=== PATIENT | female | born 1945 | race Caucasian/White ===

== ENCOUNTER 2017-08-18 13:36 | Outpatient (CLI) | payer MEDICARE, OTHER | END 2017-08-18 13:37 | disposition home or self-care (01) | LOC: BICMAMMO 13:36 | PROVIDERS: ATTEND Physician Assistant | DX: Z12.31 Encounter for screening mammogram for malignant neoplasm of breast (principal) | CPT/HCPCS: 77063; 77067 ==

== ENCOUNTER 2017-10-14 15:19 | Outpatient (CLI) | payer MEDICARE, OTHER | END 2017-10-14 15:20 | disposition home or self-care (01) | LOC: BICULT 15:19 | PROVIDERS: ATTEND Internal Medicine Cardiovascular Disease | DX: E04.1 Nontoxic single thyroid nodule (principal); E04.2 Nontoxic multinodular goiter | CPT/HCPCS: 76536 ==

== ENCOUNTER 2018-08-24 14:17 | Outpatient (CLI) | payer MEDICARE, OTHER ==
--- NOTE | 2018-08-24 15:33 | BD ---
Exam: DEXA Bone Density 08/24/18 HISTORY: 73-year-old postmenopausal female for screening. COMPARISON: None. FINDINGS: Lumbar Spine: BMD (g/cm2) L1 0.890 T-Score: -2.7 L2 0.764 T-Score: -2.4 L3 0.879 T-Score: -1.9 L4 0.659 T-Score: -3.7 L1-L4 0.751 T-Score: -2.7 Left Femoral Neck: 0.788 T-Score: -2.4 Total Femur: 0.747 T-Score: -1.6 Impression: Osteoporosis. This patient has between a 6 and 7 times increased risk of fracture when compared with young patients with normal bone mineral density. POS: MONALISA
== END 2018-08-24 14:18 | disposition home or self-care (01) ==
LOC: BICMAMMO 14:17
PROVIDERS: ATTEND Physician Assistant
DX: Z12.31 Encounter for screening mammogram for malignant neoplasm of breast (principal); Z13.820 Encounter for screening for osteoporosis; E55.9 Vitamin D deficiency, unspecified; M81.0 Age-related osteoporosis without current pathological fracture; Z80.3 Family history of malignant neoplasm of breast
CPT/HCPCS: 77063; 77067; 77080

== ENCOUNTER 2018-10-10 11:07 | Emergency (ER) | payer MEDICARE, OTHER ==
[2018-10-10] MEDS ORDERED: Ondansetron PF 4 MG/2 ML Vial ONE (11:48)
[2018-10-10] MEDS ORDERED: Morphine 4 MG/ML VIAL ONE (11:48)
[2018-10-10 11:50] LABS: #Lymphocytes 0.8 thou/uL (1.20-3.40); #Monocytes 0.4 thou/uL (0.11-0.59); #Neutrophils 14.4 thou/uL (1.40-6.50); %Basophils 0.2 % (0.0-1.0); %Eosinophils 0.1 % (0.0-10.0); %Lymphocytes 4.9 % (21.0-51.0); %Monocytes 2.8 % (0.0-10.0); %Neutrophils 92.1 % (42.0-75.0); Mean Corpuscular Hemoglobin 31.4 pg (27.0-31.0); Mean Platelet Volume 8.3 fL (7.4-10.4); Platelet Count 249 thou/uL (130-400); RBC Distribution Width 12.1 % (11.5-14.5); Red Blood Cell (RBC) Count 4.47 mill/uL (4.20-5.40); White Blood Cell (WBC) Count 15.6 thou/uL (4.8-10.8)
[2018-10-10 12:07] LABS: ALT (SGPT) 19 U/L (8-55); AST (SGOT) 18 U/L (5-34); Albumin 4.1 g/dL (3.4-4.8); Alkaline Phosphatase 123 U/L (40-150); Anion Gap 16 mmol/L (10-20); BUN (Urea Nitrogen) 20 mg/dL (9.8-20.1); Bilirubin, Total 0.6 mg/dL (0.2-1.2); Calc. Creatinine Clearance 0 mL/min (70-130); Calcium 9.4 mg/dL (7.8-10.44); Carbon Dioxide 23 mmol/L (23-31); Chloride 105 mmol/L (98-107); Estimated GFR-MDRD 74; Glucose 149 mg/dL (83-110); Lipase 10 U/L (8-78); Potassium 3.9 mmol/L (3.5-5.1); Protein, Total 7.1 g/dL (6.0-8.3); Sodium 140 mmol/L (136-145)
[2018-10-10 12:24] LABS: Bilirubin Moderate (Negative); Blood, Urine Negative (Negative); Clarity CLOUDY (Clear); Glucose, Urine (Dipstick) Negative (Negative); Leukocyte Small (Negative); Nitrite Positive (Negative); Protein, Urine (Dipstick) Negative (Neg-Trace); Specific Gravity, Urine 1.025 (1.002-1.036)
[2018-10-10 12:25] LABS: Pathc Cast-AUWi Flag 1.76 (0-2.49)
[2018-10-10 12:38] LABS: Bacteria/HPF Rare-Few HPF (None Seen); WBC/HPF 0-3 HPF (0-3)
[2018-10-10 12:39] LABS: Crystals/HPF 2+ CA OXALATE HPF (Negative); Hyaline Casts/LPF NONE SEEN LPF (0-3 Hyaline)
[2018-10-10] MEDS ORDERED: Ondansetron ODT 4 MG TAB ONE (13:54)
[2018-10-10] MEDS ORDERED: ISOVUE-370 76%-LOCM 1 ML ONE (14:11)
--- NOTE | 2018-10-10 14:25 | CT ---
CT ABDOMEN WITH CONTRAST CT PELVIS WITH CONTRAST: HISTORY: Abdominal pain. Constipation, x 1 week. COMPARISON: None. FINDINGS: CT ABDOMEN: Lung bases are clear. Heart size is normal. No significant pericardial fluid. Calcifications of th e pericardium are noted. The descending thoracic aorta and abdominal aorta have a normal caliber. N o periaortic fat stranding. Hypoattenuation of the liver likely due to hepatic steatosis. Spleen and adrenal glands are unremark able. There is pancreatic atrophy. Portal vein is patent. Unremarkable gallbladder. No gastrohepatic, retrocrural, or periportal lymphadenopathy. Symmetric enhancement of the kidneys. Bilaterally, no obstructive uropathy. Small ventral abdominal wall hernia containing mesenteric fat. Limited evaluation of the alimentary canal by lack of oral contrast. Small hiatal hernia is identifi ed. Gastric mucosa, duodenum, and multiple normal-caliber small bowel loops are normal. Ileocecal j unction is normal. Surgically absent appendix. No inflammation of the cecal apex. There is a copio us amount of fecal material in the cecum, ascending colon, transverse colon, and proximal descending colon. There is abrupt change in caliber involving the proximal descending colon. There is evidence of diverticulosis without evidence of diverticulitis. There appears to be circumferential, long-seg ment narrowing of the colon which may represent an area of colonic contraction. However, a malignant process versus changed remote bouts of infection/inflammation cannot be excluded. CT PELVIS: No mass, lymphadenopathy, free air, or free fluid. Pain pump/stimulator is noted in the pelvis. Surgically absent uterus. IMPRESSION: 1. Copious amount of fecal material with abrupt caliber change involving the proximal descending col on. There is associated bowel wall thickening and mucosal enhancement without evidence of active inf lammation. Findings may represent changes from a remote bout of infection or inflammation. Underlyi ng neoplastic process cannot be excluded. Colonoscopy is recommended. 2. Diverticulosis into the left hemicolon, without evidence of diverticulitis. 3. Copious amount of fecal material compatible with constipation/obstruction. 4. GI consultation is recommended for colonoscopy. POS: MONALISA
== END 2018-10-10 13:58 | disposition home or self-care (01) ==
LOC: ERS 11:07
DX: N39.0 Urinary tract infection, site not specified (principal); K59.00 Constipation, unspecified; K63.89 Other specified diseases of intestine; I10 Essential (primary) hypertension; Z79.82 Long term (current) use of aspirin; Z79.899 Other long term (current) drug therapy
CPT/HCPCS: 36415; 74177; 80053; 81003; 81015; 83690; 85025; 87086; A4353; J2270; J2405; Q0162

== ENCOUNTER 2018-10-10 22:47 | Inpatient (IN) | payer MEDICARE, OTHER ==
[2018-10-11] MEDS ORDERED: Morphine 4 MG/ML VIAL ONE (00:18)
[2018-10-11] MEDS ORDERED: Ondansetron PF 4 MG/2 ML Vial ONE (00:19)
[2018-10-11 00:31] LABS: Hemoglobin 15.5 g/dL (12.0-16.0); Mean Corpuscular HGB CONC 32.3 g/dL (32.0-36.0); Mean Corpuscular Hemoglobin 30.6 pg (27.0-31.0); Mean Corpuscular Volume 94.7 fL (78.0-98.0); Mean Platelet Volume 9.3 fL (7.4-10.4); Platelet Count 338 thou/uL (130-400); RBC Distribution Width 12.5 % (11.5-14.5); Red Blood Cell (RBC) Count 5.08 mill/uL (4.20-5.40); White Blood Cell (WBC) Count 27.2 thou/uL (4.8-10.8)
[2018-10-11 00:44] LABS: Band 26 % (5-11); Lymphocytes 1 % (21-51); MDiff Complete? YES; Monocytes 8 % (0-10); Neutrophil 65 % (42-75); Platelet Morphology Comment Appears Adequate
[2018-10-11 00:51] LABS: ALT (SGPT) 23 U/L (8-55); AST (SGOT) 22 U/L (5-34); Alkaline Phosphatase 107 U/L (40-150); Anion Gap 20 mmol/L (10-20); BUN (Urea Nitrogen) 22 mg/dL (9.8-20.1); Bilirubin, Total 0.5 mg/dL (0.2-1.2); Calc. Creatinine Clearance 0 mL/min (70-130); Calcium 9.1 mg/dL (7.8-10.44); Carbon Dioxide 18 mmol/L (23-31); Chloride 106 mmol/L (98-107); Estimated GFR-MDRD 66; Globulin 3.4 g/dL (2.4-3.5); Glucose 220 mg/dL (83-110); Lipase 4 U/L (8-78); Potassium 3.8 mmol/L (3.5-5.1); Protein, Total 7.4 g/dL (6.0-8.3); Sodium 140 mmol/L (136-145)
[2018-10-11] MEDS ORDERED: Piperacillin/Tazobactam 4.5 GM VIAL ONE (00:52)
[2018-10-11] MEDS ORDERED: Acetaminophen 325 MG TAB PO PRN (02:11)
[2018-10-11] MEDS ORDERED: Senokot S 8.6-50 MG TAB PO PRN (02:11)
[2018-10-11] MEDS ORDERED: Zolpidem Tartrate 5 MG TAB PO PRN (02:11)
--- NOTE | 2018-10-11 02:16 | PDOC.EVN ---
Event Note - Event Note Event Note: H&P [id number]
--- NOTE | 2018-10-11 02:36 | HP ---
ADMITTING COMPLAINT: Abdominal pain, and constipation. HISTORY OF PRESENT ILLNESS: This is a 73-year-old female with a significant history of constipation, diverticular disease, diverticulitis, comes into the ER with significant pains of constipation. The patient was found to have a potential rectal volvulus along with colitis. The patient's case was discussed between the ER attending as well as General Surgery. Plan was made to admit the patient with some IV antibiotics and fluids, and we will keep the patient n.p.o., and consult GI for potential intervention if needed. Lactic acid was found to be elevated upon the time of admission. The patient states that the symptoms apparently started 2-3 weeks ago and she has been having worsening pains since then. The patient otherwise admits to past medical history of hypertension, hyperlipidemia, osteoporosis, GERD as well as constipation and diverticular disease. The patient states that currently upon evaluation, she is having colicky pain, which is about 6/10 and comes and goes with no relieving or aggravating factors. No associated symptoms or complaints. The patient is seen and examined in the ER. Daughter at bedside. All questions answered. ALLERGIES: NO KNOWN DRUG ALLERGIES. HOME MEDICATIONS: See MAR. SOCIAL HISTORY: Nondrinker, nonsmoker. FAMILY HISTORY: hypertension, hyperlipidemia. REVIEW OF SYSTEMS: All systems reviewed. Pertinent positives in HPI, otherwise negative. PAST MEDICAL HISTORY: Hypertension, hyperlipidemia, GERD, osteoporosis, diverticular disease. PHYSICAL EXAMINATION: VITAL SIGNS: Blood pressure is 128/88, O2 saturation 100% on room air, temperature of 100, heart rate of 88. GENERAL: The patient is lying in bed, in no acute discomfort. HEENT: Pupils are equal, round, and reactive to light and accommodation. NC/AT. Oral cavity moist and pink. Extraocular muscles intact. NECK: Supple, mobile, and nontender. Thyroid appreciated. RESPIRATORY EXAM: Regular respiratory rate, clear to auscultation bilaterally. No rales, rhonchi, or wheezing appreciated. CARDIOVASCULAR EXAM: S1 and S2. No murmurs, rubs, or gallops appreciated. ABDOMINAL EXAM: Positive pain to palpation epigastric region of the level of left lower quadrant, bowel sounds present. Slightly distant, slightly slow. EXTREMITIES: 1+ pitting edema in bilateral lower extremities. No cyanosis or clubbing noted. NEUROLOGICAL: Cranial nerves 2 through 12 intact. No loss of motor or sensory function. CBC reviewed. Basic metabolic panel reviewed. Acute abdominal series reviewed as well. ASSESSMENT: 1. Volvulus versus constipation versus rectosigmoid obstruction. 2. Constipation. 3. Diverticular disease. 4. Hypertension. 5. Hyperlipidemia. 6. Abdominal pain. PLAN: 1. At this point in time, we will admit the patient to internal Medicine team, we will start the patient on antibiotics, Merrem. 2. We will consult General Surgery as well as GI. 3. We will place the patient n.p.o. for possible surgical intervention versus disimpaction. 4. Repeat labs in the morning. 5. Start IV fluids. We will do bicarb drip as the patient is acidotic with a bicarb of 18, so we will do half-normal saline with at 75 mL an hour. We will also provide p.r.n. pain medications. The patient wishes to remain a full code. Case and plan discussed with patient and daughter who was at bedside at length. They understand and agree with this plan. Job ID: [id number]
[2018-10-11] MEDS: Sodium Bicarbonate 50 MEQ in Sodium Chloride 0.45% 1,000 ML IV SCH (03:21)
[2018-10-11 03:25] VITALS: BMI 32.1
[2018-10-11] MEDS ORDERED: Morphine 4 MG/ML VIAL SLOW IVP PRN ×2 (03:49→11:07)
[2018-10-11] MEDS ORDERED: Ketorolac Tromethamine 30 MG/ML VIAL IVP SCH (04:00)
[2018-10-11] MEDS: Ondansetron PF 4 MG/2 ML Vial IVP PRN ×2 (04:15→11:53)
[2018-10-11 04:53] LABS: Anion Gap 11 mmol/L (10-20); BUN (Urea Nitrogen) 20 mg/dL (9.8-20.1); Calc. Creatinine Clearance 85 mL/min (70-130); Calcium 8.3 mg/dL (7.8-10.44); Carbon Dioxide 24 mmol/L (23-31); Chloride 110 mmol/L (98-107); Estimated GFR-MDRD 76; Glucose 189 mg/dL (83-110); Lactic Acid 4.3 mmol/L (0.5-2.2); Potassium 3.6 mmol/L (3.5-5.1); Sodium 141 mmol/L (136-145)
[2018-10-11 04:56] LABS: Hemoglobin 14.9 g/dL (12.0-16.0); Mean Corpuscular HGB CONC 32.4 g/dL (32.0-36.0); Mean Corpuscular Hemoglobin 30.8 pg (27.0-31.0); Mean Corpuscular Volume 94.9 fL (78.0-98.0); Mean Platelet Volume 8.4 fL (7.4-10.4); Platelet Count 291 thou/uL (130-400); RBC Distribution Width 12.4 % (11.5-14.5); Red Blood Cell (RBC) Count 4.82 mill/uL (4.20-5.40)
[2018-10-11 04:57] LABS: Band 19 % (5-11); Lymphocytes 3 % (21-51); MDiff Complete? YES; Monocytes 3 % (0-10); Neutrophil 75 % (42-75); Platelet Morphology Comment Appears Adequate
[2018-10-11] MEDS ORDERED: Meropenem 1 GM in Sodium Chloride 0.9% 100 ML IVPB SCH (06:00)
--- NOTE | 2018-10-11 08:34 | RAD ---
ABDOMEN TWO VIEWS: CHEST ONE VIEW: HISTORY: Abdominal pain. FINDINGS: No significant acute intrathoracic disease. No free intraperitoneal air. There are air-fluid levels within a dilated colon, particularly right colon, transverse colon, and upper left colon. IMPRESSION: Persistent abnormally dilated colon, particularly the right colon, transverse colon, and upper left c olon, with air-fluid levels, without free air or other significant acute process. POS: MONALISA
[2018-10-11] MEDS: Famotidine/PF 20 mg/2ml Vial SLOW IVP SCH ×2 (09:27→10:05)
[2018-10-11] MEDS: Ketorolac Tromethamine 30 MG/ML VIAL IVP PRN ×2 (11:49→17:41)
[2018-10-11] MEDS ORDERED: Dextrose 5 % And 0.9 % NaCl 1,000 ML IV SCH (12:15)
[2018-10-11] MEDS ORDERED: Fleet Enema 133 ML BOT PR SCH ×2 (12:30→12:39)
--- NOTE | 2018-10-11 12:46 | PDOC.PN ---
- Subjective Encounter Start Date: 10/11/18 Encounter Start Time: 12:30 Subjective: f/u for fecal impaction with N/V. No regular BM in last week. Took Lactulos -: and stool softeners without success. Abd cramping and receiving Morphine -: and Toradol. - Objective Resuscitation Status - Order Detail: 10/11/18 02:11 Resuscitation Status Routine Resuscitation Status: FULL: Full Resuscitation Discussed with: patient and daughter JCARLOS Reviewed: Yes Vital Signs & Weight: Vital Signs (12 hours) Temp Pulse Resp BP Pulse Ox 10/11/18 11:00 99.3 F 104 H 16 158/68 H 94 L 10/11/18 07:00 98.5 F 104 H 16 140/55 L 93 L 10/11/18 03:54 94 L 10/11/18 03:03 98.4 F 98 18 157/65 H 92 L Weight Weight 175 lb 6.4 oz Result Diagrams: 10/11/18 04:06 10/11/18 04:06 Additional Labs: Laboratory Tests 10/10/18 10/10/18 10/11/18 23:24 23:24 04:06 WBC 27.2 H Band Neuts % (Manual) 26 H 19 H Lactic Acid 6.3 H* 10/11/18 04:06 WBC Band Neuts % (Manual) Lactic Acid 4.3 H* Radiology Reviewed by me: Yes (CT abd/pel - large fecal impaction L colon) EKG Reviewed by me: Yes (Tele - sinus tachycardia in low-100's) Phys Exam - Physical Examination Constitutional: NAD alert, smiling HEENT: PERRLA, sclera anicteric, oral pharynx no lesions Neck: no nodes, no JVD, supple, full ROM Respiratory: no wheezing, no rales, no rhonchi, clear to auscultation bilateral S1, S2 Cardiovascular: RRR, no significant murmur, no rub, gallop mild TTP in BRIGIDO/LLQ Gastrointestinal: no distention, positive bowel sounds Musculoskeletal: no edema, pulses present Neurological: normal sensation, moves all 4 limbs Psychiatric: A&O x 3 Skin: normal turgor, cap refill <2 seconds Dx/Plan (1) Fecal impaction of colon Code(s): K56.41 - FECAL IMPACTION Status: Acute Comment: Trial Fleets enema , Sennokot-S, consult GI service, Gen Surg consult pending, conservative mgmt initially (2) Abdominal pain Code(s): R10.9 - UNSPECIFIED ABDOMINAL PAIN Status: Acute Qualifiers: Abdominal location: left upper quadrant Qualified Code(s): R10.12 - Left upper quadrant pain Comment: Secondary to #1, Morphine Sulfate, Toradol, IVF's (3) Nausea & vomiting Code(s): R11.2 - NAUSEA WITH VOMITING, UNSPECIFIED Status: Acute Comment: Continue Zofran, IV D5NS @ 125ml/h, ice chips (4) Lactic acidosis Code(s): E87.2 - ACIDOSIS Status: Acute Comment: Likely due to #1 with associated ischemic/inflammatory colitis, serial monitoring - Plan plan discussed w/ family, continue antibiotics, DVT proph w/SCDs Stable currently -: Start Fleets enema -: Start Sennokot-S BID -: GI and Gen Surg consult pending -: AM lab: BMP, CBC, Lactic acid * .
[2018-10-11] MEDS ORDERED: Pantoprazole 40 MG VIAL IVP SCH (13:00)
[2018-10-11] MEDS: Dextrose 5 % And 0.9 % NaCl 1,000 ML IV SCH (14:42)
[2018-10-11] MEDS: MEROPENEM 1 GM/50 ML 1 GM in Premix Bag 1 BAG IVPB SCH ×2 (14:43→22:56)
[2018-10-11] MEDS ORDERED: Acetaminophen 325 MG TAB PO SCH (16:00)
--- NOTE | 2018-10-11 17:13 | CON ---
DATE OF CONSULTATION: 10/11/2018 HISTORY OF PRESENT ILLNESS: This is a 73-year-old woman, who was admitted with insidious onset left-sided abdominal pain since yesterday morning. Pain is described as crampy and intermittent. This was preceded with some episodes of nonbilious emesis x2. The patient denies any fevers or chills. She reports intermittent bouts of crampy abdominal pain over the last 2 weeks, which resolved spontaneously. Since onset of this pain yesterday, the pain has been unrelenting in fact has become progressively worse resolving to have visit to the emergency department. The patient denies any hematochezia or melena. She reports history of chronic constipation. She has been told that she has diverticulosis coli during last colonoscopy 3 years ago. Benign polyp was removed at that time. The patient denies any unexplained weight loss. Last bowel movement was yesterday, which was small volume after the patient was given an enema by her daughter. PAST MEDICAL HISTORY: Pertinent for essential hypertension, hyperlipidemia, and gastroesophageal reflux disease. PAST SURGICAL HISTORY: Pertinent for abdominal hysterectomy, appendectomy, and bladder suspension. SOCIAL HISTORY: The patient is lives at home. She denies any cigarette smoking, ethanol, or illicit drug abuse. FAMILY HISTORY: Noncontributory for this patient's age. PRE-HOSPITAL MEDICATIONS: Includes aspirin 81 mg p.o. daily, pantoprazole 40 mg p.o. at bedtime, simvastatin 40 mg p.o. at bedtime, losartan 50 mg p.o. at bedtime, amlodipine 10 mg p.o. at bedtime, carbamazepine 200 mg p.o. at bedtime, and metoprolol 100 mg p.o. at bedtime. ALLERGIES: THE PATIENT DENIES ANY KNOWN DRUG ALLERGIES. REVIEW OF SYSTEMS: Ten-point review of systems essentially unremarkable except as stated in past medical history and chief complaint. PHYSICAL EXAMINATION: GENERAL: This reveals a 73-year-old normally developed woman, who is otherwise coherent, interactive and appears stated age. The patient is alert and oriented x3. She appears to be in no acute distress at time of my evaluation. VITAL SIGNS: Today include blood pressure 140/55, pulse is 104, respiratory rate is 16, temperature is 98.5 degrees Fahrenheit, and oxygen saturation is 93% on room air. HEENT: Reveals normocephalic and atraumatic. Pupils are equal, round, reactive to light and accommodation. HEART: Reveals regular rate with sinus tachycardia. No murmurs or gallops auscultated. LUNGS: Clear to auscultation bilaterally. Breathing, regular and nonlabored. ABDOMEN: Soft with left lower quadrant tenderness to palpation. She has no gross rebound tenderness present. Bowel sounds are present in all 4 quadrants. Abdomen is otherwise nondistended. Liver and spleen nonpalpable below costal margin. EXTREMITIES: Reveal 2+ radial and pedal pulses bilaterally. No ankle edema is present. NEUROLOGIC: Reveals no focal deficits present. LABORATORY FINDINGS: Today includes CBC with 27,000 white blood cells, hemoglobin and hematocrit are 14.9 and 45.8 respectively. Platelet count is 291,000. Differential count as follows; 75% segmented neutrophils, 19 bands, 3 lymphocytes and 3 monocytes. Metabolic profile; sodium 141, potassium is 3.6, chloride is 110, bicarb is 24, BUN is 20, creatinine is 0.75, glucose is 189. Lactic acid is elevated at 4.3, which is improved from 6.3 last night. I have personally reviewed the CT scan of the abdomen and pelvis, which is remarkable for thick-walled sigmoid colon with diverticulosis coli. No significant associated fat stranding to suggest acute diverticulitis is present. There is dilatation of the proximal descending colon with a change in the caliber of stool with a gastric diameter at that level. IMPRESSION: 1. Clinical acute diverticulitis with possible diverticular stricture. 2. Acute lactic acidosis. RECOMMENDATIONS: 1. We will continue with relative bowel rest, although, clear liquid diet will be appropriate. 2. Continue with broad-spectrum antibiotic therapy. 3. Recommend avoidance of enemas at this time. 4. There is no acute surgical indication for this patient at this time. 5. General Surgery will continue to follow the patient along with serial physical examination and make further recommendations as necessary. 6. Above findings and recommendation have been discussed with the patient and her family at bedside. 7. They all indicated understanding of information given. 8. I have answered their questions. Job ID: [id number]
[2018-10-11] MEDS: Acetaminophen 500 MG TAB PO SCH ×2 (17:40→23:00)
[2018-10-11] MEDS: Enoxaparin Sodium 40 MG/0.4 ML SYRINGE SC SCH (20:47)
[2018-10-11] MEDS: Amlodipine 10 MG TAB PO SCH (20:47)
[2018-10-11] MEDS: carBAMazepine 200 MG TAB PO SCH (20:48)
[2018-10-11] MEDS: Senokot S 8.6-50 MG TAB PO SCH (20:49)
[2018-10-11] MEDS: Fleet Enema 133 ML BOT PR SCH (22:01)
[2018-10-12] MEDS: Dextrose 5 % And 0.9 % NaCl 1,000 ML IV SCH ×3 (00:52→13:50)
--- NOTE | 2018-10-12 03:37 | CON ---
DATE OF CONSULTATION: 10/11/2018 REASON FOR CONSULTATION: Colonic obstruction, possible volvulus. CONSULTING PHYSICIAN: Jero Kirkland MD. HISTORY OF PRESENT ILLNESS: The patient is a 73-year-old female with past medical history of diverticulitis, hypertension, hyperlipidemia, GERD, osteoporosis, and chronic constipation, presenting with complaints of constipation, abdominal pain, nausea, and vomiting. She states that she was in her usual state of health until approximately 1 to 2 weeks ago when she began to experience increased constipation characterized as having 1 solid bowel movement every other day that was small volume and rock-like/pebble like in consistency. These bowel movements were hard and hard to pass that would require increased straining in order to facilitate defecation. Over the course of the next week, her abdominal pain was getting worse with culmination of her abdominal pain yesterday with significantly increased pain. The pain was located primarily in the left upper quadrant characterized as a cramping type sensation that was constant with waxing/waning severity and would reach a severity of 10/10. She noticed that when she attempted to consume a laxative (Smooth Move) it resulted in a significant increase in her abdominal pain, which then resulted in increased nausea and vomiting, but did not necessarily result in defecation. With her nausea and vomiting, she had an episode of emesis x2 that was nonbloody in nature. Currently, she denies any fevers, chills, GI bleeding, dysphagia, odynophagia, or weight loss. Of note, her last colonoscopy was approximately 3 years ago with 1 polyp removed at that time and recommendations to repeat the colonoscopy in 5 years. REVIEW OF SYSTEMS: A 10-category review of systems was obtained with all responses negative except for the pertinent positives as listed in the HPI. PAST MEDICAL HISTORY: As per HPI. PAST SURGICAL HISTORY: Hysterectomy, appendectomy and bladder suspension. FAMILY HISTORY: Denies any GI malignancies. SOCIAL HISTORY: Denies any tobacco, alcohol, or illicit drug use. OUTPATIENT MEDICATIONS: Reviewed. ALLERGIES: NO KNOWN DRUG ALLERGIES. PHYSICAL EXAMINATION: VITAL SIGNS: Temperature 98.3 pulse 107, blood pressure 141/59, respiratory rate 16, saturating 95% on room air. GENERAL: The patient was lying in bed, in no acute distress. Alert and oriented x4. HEENT: Normocephalic, atraumatic. No scleral icterus or JVD noted. CARDIOVASCULAR: Tachycardic rate, but regular rhythm with no discernible murmurs, gallops, or rubs. RESPIRATORY: Clear to auscultation bilaterally. ABDOMEN: Hypoactive bowel sounds, soft. Mild abdominal distention with tenderness to palpation in all abdominal quadrants, most especially in the left upper quadrant and left lower quadrant. EXTREMITIES: No cyanosis, clubbing, or edema. LABORATORY DATA: CBC with a white blood cell count of 27, hemoglobin 14.9, hematocrit 45.8, platelets 291. Chemistry with a sodium of 141, potassium 3.6, chloride 110, CO2 of 24, BUN 20, creatinine 0.75, glucose 189, AST 22, ALT 23, alkaline phosphatase 107, total bilirubin 0.5. Lactic acid 4.3. IMAGING DATA: CT of the abdomen and pelvis was obtained on October 10, 2018, which showed hypoattenuation of the liver consistent with hepatic steatosis. Also noted was pancreatic atrophy as well as a small ventral hernia containing mesenteric fat. A small hiatal hernia was noted during the CT abdomen pelvis as well. However it did also noted copious amounts of fecal material within the cecum, ascending colon, descending colon and transverse colons with an abrupt change in the proximal descending colon with no discernible origin. There was evidence of diverticulosis without any fat stranding associated with diverticulitis. ASSESSMENT AND PLAN: The patient is a 73-year-old female with past medical history of constipation, diverticulitis, hypertension, hyperlipidemia, gastroesophageal reflux disease, and osteoporosis, presenting with increased abdominal pain and imaging consistent with constipation and/or possible stercoral colitis. Constipation/stercoral colitis. The patient is presenting with progressive worsening of her constipation, having approximately 1 bowel movement every other day that was small volume and rock-like in consistency over the last 2 weeks. This was associated with increased left-sided abdominal pain that was constant with waxing/waning severity, cramping in nature and reaching a severity of 10/10. Upon review of her labs, she does have an elevated white blood cell count, concerning for an inflammatory process within the colon with imaging findings consistent with a significant amount of retained fecal material throughout the majority of the colon, but does notice a transition point within the proximal descending colon. Also noted on imaging was the presence of diverticulosis without the presence of diverticulitis. With the above findings including elevated white blood cell count, elevated lactic acid and abrupt change within the proximal descending colon with a negative colonoscopy approximately 3 years ago. The differential could include constipation with stercoral colitis resulting in ulceration, which would generate a white blood cell count, ischemic colitis, diverticulitis (less likely per imaging findings), intussusception and/or gastrointestinal neoplasm (less likely given negative colonoscopy 3 years ago). At this time, the patient has something within the descending colon that will ultimately need evaluation with repeat colonoscopy, but as she has a significant amount of retained fecal material, this would be extremely difficult to visualize without removal of some of the stool via either oral or enema route. Recommendations: 1. We would hold on any MiraLAX administration at this time given the fact that the patient consumed GoLYTELY within the last 24 to 48 hours. 2. We would administer Fleet's enemas x2 in order to break up any solid stool plug, which may be present in the distal colon and hopefully allow for better visualization of the possible obstructive process in the descending colon and/or facilitate having bowel movement, which would then in turn hopefully relieve some of her pain. 3. We will hold off on colonoscopy for the time being and assess response to treatment. 4. We would avoid any narcotic administration at this time as it could worsen her constipation. 5. Agree with broad-spectrum antibiotic therapy at this time given the possible stercoral colitis and possible associated ulcerations with this diagnosis. 6. Clear liquid diet is reasonable to administer at this time and assess as tolerated. 7. We will continue to follow. Please call with any questions. Job ID: [id number]
[2018-10-12] MEDS: Sodium Bicarbonate 50 MEQ in Sodium Chloride 0.45% 1,000 ML IV SCH (03:52)
[2018-10-12] MEDS: Acetaminophen 500 MG TAB PO SCH (04:24)
[2018-10-12] MEDS: MEROPENEM 1 GM/50 ML 1 GM in Premix Bag 1 BAG IVPB SCH ×3 (05:14→21:25)
[2018-10-12] MEDS: Ondansetron PF 4 MG/2 ML Vial IVP PRN ×2 (05:56→11:58)
[2018-10-12 06:04] LABS: Anion Gap 11 mmol/L (10-20); BUN (Urea Nitrogen) 19 mg/dL (9.8-20.1); Calc. Creatinine Clearance 87 mL/min (70-130); Calcium 7.9 mg/dL (7.8-10.44); Carbon Dioxide 24 mmol/L (23-31); Chloride 107 mmol/L (98-107); Estimated GFR-MDRD 78; Glucose 182 mg/dL (83-110); Potassium 3.8 mmol/L (3.5-5.1); Sodium 138 mmol/L (136-145)
[2018-10-12] MEDS: Fleet Enema 133 ML BOT PR SCH (06:14)
[2018-10-12 06:20] LABS: Band 17 % (5-11); Hemoglobin 12.2 g/dL (12.0-16.0); Lymphocytes 5 % (21-51); MDiff Complete? YES; Mean Corpuscular HGB CONC 33.2 g/dL (32.0-36.0); Mean Corpuscular Hemoglobin 31.5 pg (27.0-31.0); Mean Corpuscular Volume 94.8 fL (78.0-98.0); Mean Platelet Volume 8.2 fL (7.4-10.4); Monocytes 6 % (0-10); Neutrophil 72 % (42-75); Platelet Count 208 thou/uL (130-400); Platelet Morphology Comment Appears Adequate; RBC Distribution Width 12.3 % (11.5-14.5); RBC Morphology Normal; Red Blood Cell (RBC) Count 3.89 mill/uL (4.20-5.40); White Blood Cell (WBC) Count 19.3 thou/uL (4.8-10.8)
[2018-10-12] MEDS: Loratadine 10 MG TAB PO SCH ×2 (10:45→11:16)
[2018-10-12] MEDS: Senokot S 8.6-50 MG TAB PO SCH ×2 (10:45→21:25)
[2018-10-12] MEDS: Pantoprazole 40 MG VIAL IVP SCH (10:46)
--- NOTE | 2018-10-12 11:55 | PRG ---
DATE OF SERVICE: 10/12/2018 SUBJECTIVE: Ms. Lance is a 73-year-old woman, admitted with left lower quadrant abdominal pain. She reported some improvement with pain overnight, but this morning, she has had a return of crampy abdominal pain. She rates her pain this morning at 8/10. She admits to bout of nausea and emesis following oral intake of Tylenol, which she had chewed. She currently denies any chest pain or syncope. OBJECTIVE: VITAL SIGNS: Include blood pressure 131/61, pulse 83, respiratory rate is 20, temperature 98.7 degrees Fahrenheit, oxygen saturation 95% on room air. She has maximum temperature last 24 hours is 101.1 degrees Fahrenheit, which occurred this morning at 4:00 a.m. HEENT: Pupils are equal, round, reactive to light and accommodation. She has no jugular venous distention noted. HEART: Reveals regular rate and rhythm. No murmurs or gallops auscultated. LUNGS: Clear to auscultation bilaterally. Her breathing, regular and nonlabored. ABDOMEN: Soft with left lower quadrant tenderness to palpation. She has moderate rebound tenderness present. Liver and spleen remain nonpalpable below costal margin. LABORATORY FINDINGS: Today includes a CBC with 19,300 white blood cells, hemoglobin and hematocrit 12.2 and 36.9 respectively. Differential count as follows; 72 segmented neutrophils, 17 bands, 5 lymphocytes and 6 monocytes. This is in contrast to white blood cell count of 27,000 yesterday with 19% bands. Metabolic profile today includes sodium 138, potassium is 3.8, chloride is 107, bicarb is 24, BUN 19, creatinine 0.73, glucose is 182. Lactic acid is 3.0 today, down from 4.3 yesterday and 6.3 on 10/10/2018. IMPRESSION: Stable acute left lower quadrant abdominal pain, likely secondary to acute diverticulitis. PLAN: 1. Continue with broad-spectrum antibiotic therapy and IV hydration. There is no acute surgical indication for this patient at this time. 2. We will continue with clear liquid diet until her abdominal pain has significantly resolved. 3. The patient is encouraged to ambulate daily to avoid complications of venous thromboembolism. 4. Above findings and plan discussed with the patient, who indicates understanding information given. I have answered their questions. Job ID: [id number]
[2018-10-12] MEDS ORDERED: Acetaminophen 1,000 MG in Premix Bag 1 BAG IVPB SCH (12:00)
[2018-10-12] MEDS: Acetaminophen 650 MG/20.3 ML UDCUP PO SCH ×2 (12:58→19:05)
--- NOTE | 2018-10-12 13:12 | PQF ---
CLINICAL DOCUMENTATION IMPROVEMENT CLARIFICATION FORM: ICD-10 Updated PLEASE DO AN ADDENDUM TO THE PROGRESS NOTE WITH ANY DOCUMENTATION UPDATES OR ADDITIONS AND CARRY THROUGH TO DC SUMMARY. THANK YOU. DATE: 10/12/18 ATTN: DR. TAN Please exercise your independent, professional judgment in responding to the clarification form. Clinical indicators are provided on the bottom of this form for your review Please check appropriate box(s) to clarify if the following diagnosis has been ruled in or ruled out: SEPSIS [ ] Ruled in diagnosis [ ] Continue to treat [ ] Resolved [ x ] Ruled out diagnosis [ ] Other diagnosis [ ] Unable to determine In addition, please specify: Present on Admission (POA): [ ] Yes [ x ] No [ ] Unable to determine For continuity of documentation, please document condition throughout progress notes and discharge summary. Thank You. CLINICAL INDICATORS - SIGNS / SYMPTOMS / LABS ER NOTE: "SEVERE SEPSIS" WBC 27.2 BANDS 26 PULSE 117 RISKS: UTI FECAL IMPACTION ISCHEMIC COLITIS TREATMENT: IV ZOSYN (ER) IV FLUIDS (ER) IV VANCOMYCIN (ER) IV MERREM (10/11-PRESENT) BLOOD CULTURES CARDIAC MONITORING (This form is maintained as a part of the permanent medical record) 2014 [employer]. All Rights Reserved [email or web address] Office: [phone] HOSPITALAna Laura
--- NOTE | 2018-10-12 19:52 | PDOC.PN ---
- Subjective Encounter Start Date: 10/12/18 Encounter Start Time: 12:20 Subjective: f/u for colonic obstruction, constipation, colitis. Minimal stool passing -: after enemas, +flatus. Tolerated small amount of clears. - Objective Resuscitation Status - Order Detail: 10/11/18 02:11 Resuscitation Status Routine Resuscitation Status: FULL: Full Resuscitation Discussed with: patient and daughter JCARLOS Reviewed: Yes Vital Signs & Weight: Vital Signs (12 hours) Temp Pulse Resp BP BP Pulse Ox 10/12/18 15:49 99.5 F 85 18 114/56 L 95 10/12/18 12:00 98.2 F 90 18 130/60 93 L 10/12/18 10:45 93 L 10/12/18 07:59 98.7 F 83 20 131/61 95 Weight Weight 175 lb 6.4 oz I&O: 10/11/18 10/12/18 10/13/18 06:59 06:59 06:59 Intake Total 3041 600 Output Total 300 Balance 2741 600 Result Diagrams: 10/12/18 05:33 10/12/18 05:33 Additional Labs: Laboratory Tests 10/10/18 10/10/18 10/11/18 23:24 23:24 04:06 WBC 27.2 H Band Neuts % (Manual) 26 H 19 H Lactic Acid 6.3 H* 10/11/18 04:06 WBC Band Neuts % (Manual) Lactic Acid 4.3 H* Phys Exam - Physical Examination Constitutional: NAD HEENT: PERRLA, sclera anicteric, oral pharynx no lesions Neck: no nodes, no JVD, supple, full ROM Respiratory: no wheezing, no rales, no rhonchi, clear to auscultation bilateral S1, S2 Cardiovascular: RRR, no significant murmur, no rub, gallop TTP in BRIGIDO/LLQ diminished bowel sounds Gastrointestinal: no distention Musculoskeletal: no edema, pulses present Neurological: normal sensation, moves all 4 limbs Psychiatric: A&O x 3 Skin: normal turgor, cap refill <2 seconds Dx/Plan (1) Fecal impaction of colon Code(s): K56.41 - FECAL IMPACTION Status: Acute Comment: Trial Fleets enema , Sennokot-S, consult GI service, Gen Surg consult pending, conservative mgmt initially, trial Movantik 12.5mg x 1 today (2) Abdominal pain Code(s): R10.9 - UNSPECIFIED ABDOMINAL PAIN Status: Acute Qualifiers: Abdominal location: left upper quadrant Qualified Code(s): R10.12 - Left upper quadrant pain Comment: Secondary to #1, Morphine Sulfate, Toradol, IVF's (3) Nausea & vomiting Code(s): R11.2 - NAUSEA WITH VOMITING, UNSPECIFIED Status: Acute Comment: Continue Zofran, IV D5NS @ 125ml/h, ice chips (4) Lactic acidosis Code(s): E87.2 - ACIDOSIS Status: Acute Comment: Likely due to #1 with associated ischemic/inflammatory colitis, serial monitoring, improved - Plan plan discussed w/ family, out of bed/ambulate, DVT proph w/SCDs Stable currently -: OOB/ambulate -: Continue IVF's -: Trial Movantik 12.5mg x 1 dose today -: Toradol 30mg IV q6h * AM lab: BMP
[2018-10-12] MEDS: Enoxaparin Sodium 40 MG/0.4 ML SYRINGE SC SCH (21:25)
[2018-10-12] MEDS: Amlodipine 10 MG TAB PO SCH (21:25)
[2018-10-12] MEDS: carBAMazepine 200 MG TAB PO SCH (21:25)
[2018-10-13] MEDS: Acetaminophen 650 MG/20.3 ML UDCUP PO SCH ×4 (00:50→22:31)
[2018-10-13] MEDS: Dextrose 5 % And 0.9 % NaCl 1,000 ML IV SCH (00:50)
[2018-10-13] MEDS: MEROPENEM 1 GM/50 ML 1 GM in Premix Bag 1 BAG IVPB SCH ×3 (05:41→22:20)
[2018-10-13 06:01] LABS: Band 31 % (5-11); Lymphocytes 7 % (21-51); MDiff Complete? YES; Mean Corpuscular HGB CONC 32.6 g/dL (32.0-36.0); Mean Platelet Volume 8.8 fL (7.4-10.4); Monocytes 8 % (0-10); Neutrophil 54 % (42-75); Platelet Count 219 thou/uL (130-400); Platelet Morphology Comment Appears Adequate; RBC Distribution Width 12.2 % (11.5-14.5); Red Blood Cell (RBC) Count 3.88 mill/uL (4.20-5.40); White Blood Cell (WBC) Count 14.8 thou/uL (4.8-10.8)
[2018-10-13] MEDS: Senokot S 8.6-50 MG TAB PO SCH ×2 (09:31→20:02)
[2018-10-13] MEDS: Pantoprazole 40 MG VIAL IVP SCH (09:32)
[2018-10-13] MEDS: Loratadine 10 MG TAB PO SCH (09:32)
--- NOTE | 2018-10-13 12:02 | PRG ---
DATE OF SERVICE: 10/13/2018 SUBJECTIVE: Ms. Lance is a 73-year-old woman, admitted on 10/11/2018 for acute onset left-sided abdominal pain. She has been on antibiotics for presumed sigmoid colon diverticulitis versus ischemic colitis. This morning, she reports 8/10 abdominal pain with provocation. She is passing some flatus, but has not had any bowel movement. It has been over 10 days now since she last had bowel movement. She denies any fevers or chills. She is tolerating clear liquid diet, denying any nausea or vomiting. OBJECTIVE: VITAL SIGNS: Her vital signs today include blood pressure 157/72, pulse is 85, respiratory rate is 20, temperature is 98.4 degrees Fahrenheit, and oxygen saturation is 95% on room air. Note that the maximum temperature in last 24 hours is 101.1 degrees Fahrenheit. HEART: Reveals regular rate and rhythm. LUNGS: Clear to auscultation bilaterally. Breathing, regular and nonlabored. ABDOMEN: Soft, moderately distended with left lower quadrant tenderness to palpation. She has rebound tenderness present. NEUROLOGIC: Reveals no focal deficits present. LABORATORY FINDINGS: Today include CBC with 14,800 white blood cell, hemoglobin and hematocrit are 12.0 and 36.8 respectively. Platelet count is 219,000 and stable. Differential counts as follows, 54% segmented neutrophils, 31% bands, 7 lymphocytes, and 8 monocytes. Note that the admitting CBC was remarkable for white blood cell count of 27,000 with 26% bands at that time. IMPRESSION: 1. Acute abdominal pain, likely secondary to sigmoid colon diverticulitis versus ischemic colitis. 2. 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 3. Resolving leukocytosis though with worsening bandemia. PLAN: 1. Continue with current medical management utilizing broad-spectrum antibiotic therapy. 2. Discussed the above case with my Gastroenterology colleague, Dr. Jero Correia. 3. We both agreed that the patient deserves a chance with ongoing medical management. Hopefully, the stricture will resolve to the extent that we are able to adequately prep the patient to relieve the profound fecal stasis. 4. If the patient fails to improve over the next few days or in fact shows any sign of worsening physiology including fever, increasing abdominal pain, or nausea and vomiting, we will give consideration to operative intervention including Rossana's procedure at that time. 5. Above findings and plan have been discussed with the patient and her family at bedside. They indicated understanding of information given. I have answered their questions. Job ID: [id number]
[2018-10-13] MEDS ORDERED: Magnesium Citrate 300 ML BOT PO SCH (12:45)
[2018-10-13 16:22] LABS: Hemoglobin 11.6 g/dL (12.0-16.0); Mean Corpuscular HGB CONC 33.5 g/dL (32.0-36.0); Mean Corpuscular Hemoglobin 31.7 pg (27.0-31.0); Mean Corpuscular Volume 94.7 fL (78.0-98.0); Mean Platelet Volume 8.6 fL (7.4-10.4); Platelet Count 212 thou/uL (130-400); RBC Distribution Width 12.2 % (11.5-14.5); Red Blood Cell (RBC) Count 3.66 mill/uL (4.20-5.40); White Blood Cell (WBC) Count 13.6 thou/uL (4.8-10.8)
--- NOTE | 2018-10-13 16:35 | RAD ---
FAP view chest as well as supine and upright views abdomen. HISTORY: Descending colonic obstruction with chest pain AP view chest demonstrates small bilateral pleural effusions. Right basilar areas of patchy densities of developed compatible with by basilar pneumonias. These were not present on the previous exam from 2 days earlier. A large amount of stool is seen in the colon. There is a right sacral plexus stimulator in place. No evidence of bowel obstruction or ileus seen. IMPRESSION: 1: Interval development of bibasilar areas of lung opacities concerning for pneumonia or aspiration. 2: Large amount of stool in the colon compatible with severe constipation.
[2018-10-13 16:40] LABS: Lactic Acid 1.1 mmol/L (0.5-2.2)
[2018-10-13 16:41] LABS: Anion Gap 7 mmol/L (10-20); BUN (Urea Nitrogen) 9 mg/dL (9.8-20.1); Calc. Creatinine Clearance 112 mL/min (70-130); Calcium 8.2 mg/dL (7.8-10.44); Carbon Dioxide 29 mmol/L (23-31); Chloride 104 mmol/L (98-107); Estimated GFR-MDRD Greater than 90; Glucose 111 mg/dL (83-110); Potassium 3.2 mmol/L (3.5-5.1); Sodium 137 mmol/L (136-145)
--- NOTE | 2018-10-13 17:06 | PRG ---
DATE OF SERVICE: 10/12/2018 SUBJECTIVE: Ms. Lance continues to have abdominal pain. She had no bowel movement. No nausea or vomiting. She is tolerating clear liquids so far. PHYSICAL EXAMINATION: VITAL SIGNS: Temperature 98.3, pulse 81, and blood pressure 131/62. GENERAL: She is uncomfortable, but in no acute distress. LUNGS: Clear to auscultation bilaterally. HEART: Regular rate and rhythm without murmur. ABDOMEN: Tender diffusely, but more so on the left. Bowel sounds are present. EXTREMITIES: No lower extremity edema. LABORATORY DATA: White blood cell count 19.3, down from 27; hemoglobin 12.2; and platelets 208. Creatinine 0.73. Lactic acid 3.0. IMPRESSION: Colonic obstruction at the descending colon, likely secondary to acute diverticulitis in this area versus ischemic colitis. She is presenting with severe constipation proximal to this and colonic dilation. She has received an enema and did pass flatus with that with improvement in her pain; however, she certainly would not tolerate oral laxatives at this point. As her white blood cell count is improving, we will continue to follow. RECOMMENDATIONS: IV fluids and antibiotics. Job ID: [id number]
[2018-10-13 17:11] LABS: Band 27 % (5-11); Dohle Bodies SLIGHT; Lymphocytes 9 % (21-51); MDiff Complete? YES; Metamyelocyte 2 % (0-0); Monocytes 6 % (0-10); Neutrophil 52 % (42-75); Platelet Morphology Comment Appears Adequate; Polychromasia SLIGHT = 2-3 cells (100X) (0-2/hpf); Reactive Lymphocytes 4 % (0-10); Toxic Granulation SLIGHT; Vacuoles SLIGHT
--- NOTE | 2018-10-13 18:08 | PDOC.PN ---
- Subjective Encounter Start Date: 10/13/18 Encounter Start Time: 11:05 Subjective: f/u for descending colonic obstruction, fecal impaction with associated -: inflammation and recalcitrant to conservative med mgmt. Scant stool -: passed with enemas. - Objective Resuscitation Status - Order Detail: 10/11/18 02:11 Resuscitation Status Routine Resuscitation Status: FULL: Full Resuscitation Discussed with: patient and daughter JCARLOS Reviewed: Yes Vital Signs & Weight: Vital Signs (12 hours) Temp Pulse Resp BP BP Pulse Ox 10/13/18 13:05 97.9 F 85 18 131/61 95 10/13/18 07:30 98.4 F 85 20 157/72 H 95 Weight Weight 175 lb 6.4 oz I&O: 10/12/18 10/13/18 10/14/18 06:59 06:59 06:59 Intake Total 3041 1580 Output Total 300 Balance 2741 1580 Result Diagrams: 10/13/18 15:58 10/13/18 15:58 Additional Labs: Laboratory Tests 10/10/18 10/10/18 10/11/18 23:24 23:24 04:06 WBC 27.2 H Band Neuts % (Manual) 26 H 19 H Lactic Acid 6.3 H* 10/11/18 04:06 WBC Band Neuts % (Manual) Lactic Acid 4.3 H* Laboratory Tests 10/10/18 10/10/18 10/11/18 23:24 23:24 04:06 WBC 27.2 H Band Neuts % (Manual) 26 H 19 H Lactic Acid 6.3 H* 10/11/18 04:06 WBC Band Neuts % (Manual) Lactic Acid 4.3 H* Radiology Reviewed by me: Yes (ABD x-ray - large amount stool, bibasilar atelectasis) EKG Reviewed by me: Yes (Tele - SR) Phys Exam - Physical Examination Constitutional: NAD alert, responsive HEENT: PERRLA, sclera anicteric, oral pharynx no lesions Neck: no nodes, no JVD, supple, full ROM diminished in bilat rubio Respiratory: no wheezing S1, S2 Cardiovascular: RRR, no significant murmur, no rub, gallop mild distention, +TTP Gastrointestinal: soft, positive bowel sounds Musculoskeletal: no edema, pulses present Neurological: normal sensation, moves all 4 limbs Psychiatric: A&O x 3 Skin: normal turgor, cap refill <2 seconds Dx/Plan (1) Fecal impaction of colon Code(s): K56.41 - FECAL IMPACTION Status: Acute Comment: Trial Fleets enema , Sennokot-S, consult GI service, Gen Surg consult, conservative mgmt initially , trial Movantik 12.5mg x 1 today, may need colon resection for definitive mgmt (2) Abdominal pain Code(s): R10.9 - UNSPECIFIED ABDOMINAL PAIN Status: Acute Qualifiers: Abdominal location: left upper quadrant Qualified Code(s): R10.12 - Left upper quadrant pain Comment: Secondary to #1, Morphine Sulfate, Toradol, IVF's (3) Nausea & vomiting Code(s): R11.2 - NAUSEA WITH VOMITING, UNSPECIFIED Status: Acute Comment: Continue Zofran, IV D5NS @ 75ml/h, ice chips (4) Lactic acidosis Code(s): E87.2 - ACIDOSIS Status: Acute Comment: Likely due to #1 with associated ischemic/inflammatory colitis, serial monitoring, improved - Plan plan discussed w/ family, continue antibiotics, PT/OT, social work associate, out of bed/ambulate, DVT proph w/SCDs Stable currently -: Clear liquids as tolerated -: Decrease IVF's 75ml/h -: Trial Magnesium citrate -: May need surgical decompression if no improvement in next 24h * AM lab: CBC
[2018-10-13] MEDS: carBAMazepine 200 MG TAB PO SCH (19:59)
[2018-10-13] MEDS: Amlodipine 10 MG TAB PO SCH (19:59)
[2018-10-13] MEDS: Enoxaparin Sodium 40 MG/0.4 ML SYRINGE SC SCH (20:00)
[2018-10-14] MEDS: MEROPENEM 1 GM/50 ML 1 GM in Premix Bag 1 BAG IVPB SCH ×2 (05:29→18:00)
[2018-10-14] MEDS: Dextrose 5 % And 0.9 % NaCl 1,000 ML IV SCH ×3 (05:30→13:33)
[2018-10-14] MEDS: Acetaminophen 650 MG/20.3 ML UDCUP PO SCH ×5 (05:31→23:15)
[2018-10-14 06:09] LABS: Band 3 % (5-11); Hemoglobin 11.4 g/dL (12.0-16.0); Lymphocytes 3 % (21-51); MDiff Complete? YES; Mean Corpuscular HGB CONC 34.3 g/dL (32.0-36.0); Mean Corpuscular Hemoglobin 32.2 pg (27.0-31.0); Mean Corpuscular Volume 93.8 fL (78.0-98.0); Mean Platelet Volume 8.5 fL (7.4-10.4); Monocytes 1 % (0-10); Neutrophil 93 % (42-75); Platelet Count 216 thou/uL (130-400); Platelet Morphology Comment Appears Adequate; RBC Distribution Width 12.2 % (11.5-14.5); RBC Morphology Normal; Red Blood Cell (RBC) Count 3.55 mill/uL (4.20-5.40); White Blood Cell (WBC) Count 11.1 thou/uL (4.8-10.8)
--- NOTE | 2018-10-14 09:29 | PRG ---
DATE OF SERVICE: 10/13/2018 SUBJECTIVE: Ms. Lance passed a small amount of flatus this morning, but has had no air output or stool output through the afternoon. She hurts when she gets up and moves around, but she is at least stable to walk to the bathroom and back. She has had no vomiting and still tolerating small amounts of clear liquids. She has had no fever. OBJECTIVE: VITAL SIGNS: Temperature 98.7, pulse 85, blood pressure 131/66. LUNGS: Clear to auscultation bilaterally. HEART: Regular rate and rhythm without murmur. ABDOMEN: Soft. She is tender to palpation throughout, more so on the left abdomen with some guarding in this area. She has no bowel sounds today. LABORATORY DATA: Creatinine 0.57, potassium 3.2. Her white blood cell count was down to 14.8 today, however, her bands increased to 31% from 17%. IMPRESSION: Colonic obstruction at the descending colon secondary to acute diverticulitis versus ischemic colitis. Either way, the treatment is going to be the same at this stage, which is IV fluids and antibiotics. If she continues to worsen and shows any signs of decompensation with fever or worsening pain or nausea and vomiting, then plan is to proceed with surgical intervention at that point. She would require a colostomy. The concern is that she has severe constipation proximal to the strictured inflamed segment. I discussed her case with Dr. Lea today. For now, her white blood cell count is decreasing. She did pass some flatus this morning and her pain is actually better today than it was yesterday. I think that we should be able to continue medical management at this point with antibiotics and fluids. She is really only on her third full day of antibiotics today. RECOMMENDATIONS: I will recheck her white blood cell count and lactate and abdominal x-ray this afternoon. If she is showing again worsening of her bandemia or significant increase in caliber of her right colon, then again surgical intervention may be required sooner. ADDENDUM: She did have the blood count done. Her white blood cell count continues to trend down to 13.6. The differential on that is still pending. Her lactate is down to 1.1. X-ray shows new finding of bibasilar lung opacities. This could be atelectasis given that she is not taking full inspirations due to the abdominal pain. This could put her at risk for pneumonia. Again, the large amount of stool was seen in the right colon, however, the colon is not more distended than previous imaging. In fact, the air-fluid levels have resolved. Overall, at this point, I think we can avoid surgery. Depending on her clinical progression, once she is able to adequately safely tolerate more oral intake, then a Gastrografin small-bowel follow-through might help determine patency of the right colon and also help initiate treatment of the constipation. Job ID: [id number]
[2018-10-14] MEDS: Loratadine 10 MG TAB PO SCH (10:01)
[2018-10-14] MEDS: Senokot S 8.6-50 MG TAB PO SCH (10:04)
[2018-10-14] MEDS: Pantoprazole 40 MG VIAL IVP SCH (10:10)
--- NOTE | 2018-10-14 10:29 | PRG ---
DATE OF SERVICE: 10/14/2018 SUBJECTIVE: Ms. Lance is a 73-year-old woman, admitted with abdominal pain. The patient reports decrease in abdominal pain this morning. She is passing flatus and had a smear of bowel movement this morning. She is tolerating clear liquid diet. Urinary output has been adequate. OBJECTIVE: VITAL SIGNS: This morning include blood pressure 144/69, pulse 77, respiratory rate is 20, temperature 97.6 degrees Fahrenheit, oxygen saturation is 97% on room air. ABDOMEN: Soft, moderately distended with decreased left lower quadrant tenderness to palpation. She has no significant peritoneal signs on examination today. Bowel sounds normoactive in all 4 quadrants. NEUROLOGIC: Reveals no focal deficits present. LABORATORY FINDINGS: Today include a CBC with 11,100 white blood cells, hemoglobin and hematocrit stable at 11.4 and 33.3 respectively. Platelet count is stable at 216,000. Differential count as follows: 93% segmented neutrophils, 3% bands, 3 lymphocytes, and one monocyte. IMPRESSION: 1. Resolving acute abdominal pain. 2. Resolving leukocytosis and markedly improved bandemia. PLAN: Continue conservative management including broad-spectrum antibiotic therapy, we will optimize bowel regimen to include laxative this morning. There is no acute surgical indication for this patient at this time. Job ID: [id number]
[2018-10-14] MEDS ORDERED: Magnesium Citrate 300 ML BOT PO SCH (13:15)
[2018-10-14] MEDS: D5 NS w/ 40 mEq KCl 1,000 ML IV SCH (13:24)
--- NOTE | 2018-10-14 14:31 | PDOC.PN ---
- Subjective Encounter Start Date: 10/14/18 Encounter Start Time: 14:25 Subjective: f/u for fecal impaction, descending colon obstruction suspected due -: to inflammatory diverticulitis. + loose stool today on 2 occasions, feeling -: better overall. No n/v - Objective Resuscitation Status - Order Detail: 10/11/18 02:11 Resuscitation Status Routine Resuscitation Status: FULL: Full Resuscitation Discussed with: patient and daughter JCARLOS Reviewed: Yes Vital Signs & Weight: Vital Signs (12 hours) Temp Pulse Resp BP BP Pulse Ox 10/14/18 12:00 98.1 F 81 12 159/76 H 95 10/14/18 10:10 96 10/14/18 08:00 98.0 F 78 16 162/75 H 96 10/14/18 03:53 97.6 F 77 20 144/69 H 97 Weight Weight 175 lb 6.4 oz I&O: 10/13/18 10/14/18 10/15/18 06:59 06:59 06:59 Intake Total 1580 1240 120 Balance 1580 1240 120 Result Diagrams: 10/14/18 05:19 10/13/18 15:58 Additional Labs: Laboratory Tests 10/10/18 10/10/18 10/11/18 23:24 23:24 04:06 WBC 27.2 H Band Neuts % (Manual) 26 H 19 H Lactic Acid 6.3 H* 10/11/18 04:06 WBC Band Neuts % (Manual) Lactic Acid 4.3 H* Microbiology 10/11/18 00:52 Venous blood - Left Arm Blood Culture - Preliminary NO GROWTH AT 48 HOURS 10/11/18 00:50 Venous blood - Right Hand Blood Culture - Preliminary NO GROWTH AT 48 HOURS EKG Reviewed by me: Yes (Tele - SR, short run of AJR) Phys Exam - Physical Examination Constitutional: NAD HEENT: PERRLA, sclera anicteric, oral pharynx no lesions Neck: no nodes, no JVD, supple, full ROM Respiratory: no wheezing, no rales, no rhonchi, clear to auscultation bilateral S1, S2 Cardiovascular: RRR, no significant murmur, no rub, gallop mild TTP in LUQ, no rebound Gastrointestinal: soft, no distention, positive bowel sounds Musculoskeletal: no edema, pulses present Neurological: normal sensation, moves all 4 limbs Psychiatric: A&O x 3 Skin: normal turgor, cap refill <2 seconds Dx/Plan (1) Fecal impaction of colon Code(s): K56.41 - FECAL IMPACTION Status: Acute Comment: Trial Fleets enema , Sennokot-S, consult GI service, Gen Surg consult, conservative mgmt initially , trial Movantik 12.5mg x 1 today, Mag citrate today, likely will need colonoscopy evaluation after resolving acute inflammation (2) Abdominal pain Code(s): R10.9 - UNSPECIFIED ABDOMINAL PAIN Status: Acute Qualifiers: Abdominal location: left upper quadrant Qualified Code(s): R10.12 - Left upper quadrant pain Comment: Secondary to #1, Toradol, IVF's, improved (3) Nausea & vomiting Code(s): R11.2 - NAUSEA WITH VOMITING, UNSPECIFIED Status: Acute Comment: Continue Zofran, IV D5NS + KCL@ 75ml/h, resolved, clear liquids (4) Lactic acidosis Code(s): E87.2 - ACIDOSIS Status: Acute Comment: Likely due to #1 with associated ischemic/inflammatory colitis, serial monitoring, improved (5) Accelerated junctional rhythm Code(s): I49.8 - OTHER SPECIFIED CARDIAC ARRHYTHMIAS Status: Acute Comment: Transient run of AJR asymptomatic, continue Metoprolol 100mg hs, consult Cardiology for any further recommendations - Plan plan discussed w/ family, social and political studies professor, out of bed/ambulate, DVT proph w/SCDs Stable overall -: Magnesium citrate today -: Continue Sennokot-S -: Continue IVF's -: Continue Meropenem another 24-48h * AM lab: BMP, CBC
[2018-10-14] MEDS ORDERED: Clopidogrel Bisulfate 75 MG TAB ONE (17:05)
[2018-10-14] MEDS ORDERED: GoLYTELY 4,000 ml Bottle PO SCH (17:45)
[2018-10-14] MEDS ORDERED: Digoxin 0.5 MG/2 ML AMP SLOW IVP SCH (18:15)
[2018-10-14] MEDS ORDERED: Potassium Chloride 20 MEQ TAB PO SCH (18:15)
[2018-10-14] MEDS ORDERED: Lisinopril 5 MG TAB PO SCH (18:15)
--- NOTE | 2018-10-14 18:21 | CON ---
DATE OF CONSULTATION: 10/14/2018 REASON FOR CONSULTATION: Tachycardia. HISTORY OF PRESENT ILLNESS: Ms. Lance is a 73-year-old woman, who is admitted with severe constipation. The patient is gradually improving from that standpoint. The etiology of this is thought to possibly be diverticulitis. Fortunately, she is responding to conservative medical care. The patient has had some episodes of rapid heart rate while here in the hospital. PAST HISTORY: She has a history of hypertension. No previous cardiac problems that she is aware of. No chest pain or pressure. MEDICATIONS: Her medications at home included: 1. Metoprolol succinate 100 mg at bedtime. 2. Amlodipine 10 mg a day. 3. Losartan 50 mg at bedtime. 4. Simvastatin. REVIEW OF SYSTEMS: CONSTITUTIONAL: Positive for weakness and fatigue following the prolonged diarrhea that she is having now and constipation. VISION: No changes. HEARING: No changes. PULMONARY: No cough or wheezing. CARDIAC: She occasionally has rapid heart rate here. GASTROINTESTINAL: As outlined above. SKIN: No rashes. NEUROLOGIC: No unilateral weakness or numbness. PHYSICAL EXAMINATION: GENERAL: This is a pleasant 73-year-old woman, resting comfortably, in no distress. She fortunately is having bowel movements now. VITAL SIGNS: Blood pressure is high at 159/76, pulse 80. LUNGS: Clear. CARDIAC: Normal S1, normal S2. ABDOMEN: Obese, nontender. EXTREMITIES: No clubbing or cyanosis. There is trace to mild edema. PERTINENT LABORATORY: Potassium is 3.2, creatinine is 0.57. EKG does show episodes of tachycardia, narrow complex at a rate of 180. It looks like supraventricular tachycardia, probably AV jagdish reentry, lasts for minute and a half. ASSESSMENT: 1. Constipation, thought to be possibly related to diverticulitis, improving. 2. Hypertension. 3. Hypokalemia. 4. Constipation. PLAN: 1. Continue metoprolol. 2. We will add digoxin. I am reluctant to give her Cardizem in view of her already having constipation. 3. Reduce amlodipine. 4. Add IBIS inhibitor. 5. Replete potassium. I will be glad to follow with you. Also echocardiogram has been ordered. Job ID: [id number]
--- NOTE | 2018-10-14 18:26 | PRG ---
DATE OF SERVICE: 10/14/2018 SUBJECTIVE: Ms. Lance started passing air and bowel movements today. She has no significant abdominal pain. She has had no ongoing nausea. OBJECTIVE: VITAL SIGNS: Temperature 98.1, pulse 81, blood pressure 159/76. GENERAL: She is in no acute distress. She is alert and oriented x3. LUNGS: Clear to auscultation bilaterally. HEART: Regular rate and rhythm without murmur. ABDOMEN: Soft. Minimal tenderness today. Bowel sounds are present. EXTREMITIES: No lower extremity edema. LABORATORY DATA: Creatinine 0.57. White blood cell count 11.1, hemoglobin 11.4, bands 3. IMPRESSION: 1. Inflammatory stricture of the descending colon, which could be secondary to ischemic colitis versus diverticulitis. The treatment is the same either way at this point given that she continues to have clinical improvement, which is continued IV antibiotics and IV fluids. 2. Constipation with a large amount of stool proximal to the inflammatory stricture. This is now improving clinically as the stricture is opening up with improvement in the inflammation with treatment of the infectious process. She has tolerated magnesium citrate today and is passing liquidy stools. RECOMMENDATIONS: 1. Continue meropenem. 2. Continue IV fluids. 3. GoLYTELY today. 4. I believe we can stop the Movantik. She has not been receiving scheduled morphine. 5. Back off the stimulant laxatives as well in light of consideration for ischemic colitis. I would stop the ondansetron for now as her nausea is improved and this can also be constipating. I would prefer to use Phenergan at this point. 6. Continue clear liquid diet for now. 7. She is ambulating to the bathroom. We will continue to encourage ambulation. 8. She does not appear to require immediate surgery at this point. The area in the descending colon will need to be evaluated endoscopically. However, this would be better to delay for 6 weeks as there is possibility that diverticulitis might be the underlying reason for this inflammatory stricture and that can increase the risk for perforation with a weak diverticulum wall where the recent diverticulitis attack. She did have a negative colonoscopy 3 years ago, except for severe diverticulosis in the descending and sigmoid colon. Job ID: [id number]
[2018-10-14] MEDS: Amlodipine 5 MG TAB PO SCH (20:21)
[2018-10-14] MEDS: Enoxaparin Sodium 40 MG/0.4 ML SYRINGE SC SCH (20:21)
[2018-10-14] MEDS: carBAMazepine 200 MG TAB PO SCH (20:21)
[2018-10-15] MEDS: MEROPENEM 1 GM/50 ML 1 GM in Premix Bag 1 BAG IVPB SCH ×3 (01:30→17:05)
[2018-10-15] MEDS: Acetaminophen 650 MG/20.3 ML UDCUP PO SCH ×3 (05:08→17:05)
[2018-10-15 06:46] LABS: Anion Gap 10 mmol/L (10-20); BUN (Urea Nitrogen) 4 mg/dL (9.8-20.1); Calc. Creatinine Clearance 126 mL/min (70-130); Calcium 8.1 mg/dL (7.8-10.44); Carbon Dioxide 28 mmol/L (23-31); Chloride 104 mmol/L (98-107); Estimated GFR-MDRD Greater than 90; Glucose 104 mg/dL (83-110); Sodium 139 mmol/L (136-145)
[2018-10-15] MEDS: D5 NS w/ 40 mEq KCl 1,000 ML IV SCH ×2 (08:57→16:33)
[2018-10-15] MEDS: Digoxin 0.125 MG TAB PO SCH (08:59)
[2018-10-15] MEDS: Pantoprazole 40 MG VIAL IVP SCH (09:00)
[2018-10-15] MEDS: Loratadine 10 MG TAB PO SCH (09:00)
[2018-10-15] MEDS: Lisinopril 5 MG TAB PO SCH (09:00)
[2018-10-15 09:30] LABS: Magnesium 1.9 mg/dL (1.6-2.6)
[2018-10-15 09:34] LABS: Phosphorus 1.1 mg/dL (2.3-4.7)
[2018-10-15] MEDS ORDERED: Potassium Phosphate 30 MMOL in Sodium Chloride 0.9% 500 ML IVPB SCH (12:45)
[2018-10-15] MEDS ORDERED: Magnesium 2 GM/50 ML 2 GM in Premix Bag 1 BAG IVPB SCH (12:45)
[2018-10-15] MEDS ORDERED: Potassium Phosphate 30 MMOL in Sodium Chloride 0.9% 250 ML 250 ML IVPB SCH (13:00)
--- NOTE | 2018-10-15 14:21 | PRG ---
DATE OF SERVICE: 10/15/2018 SUBJECTIVE: The patient was seen this morning sitting up in bed. Reported having multiple bowel movements in the past 24 hours. She is currently on GoLYTELY and a clear liquid diet with additional IV fluids. She reports tolerating her diet with improving abdominal pain. Denies nausea or vomiting. Ambulating to the commode with assistance. OBJECTIVE: VITAL SIGNS: Temperature 98.4, pulse 82, respirations 15, oxygen saturation 93% on room air, and blood pressure 147/67. GENERAL: Well-appearing elderly female, sitting up in bed with no signs of acute distress. PULMONARY: Equal chest rise and fall. Clear breath sounds bilaterally. No signs of acute pulmonary distress. CARDIAC: Regular rate and rhythm. No murmurs, gallops, or rubs. GI: Abdomen is soft, mildly tender to palpation, but nondistended. Active bowel sounds in all 4 quadrants. EXTREMITIES: 2+ pulses in all extremities. Gross motor and sensation intact in all extremities. No significant swelling noted. LABORATORY FINDINGS: Sodium 139, potassium 3.0, chloride 104, carbon dioxide 28, BUN 4, creatinine 0.52, glucose 104, phosphorus 1.1, magnesium 1.9. BNP 415.7. DIAGNOSTIC FINDINGS: There are no new diagnostic findings to report. IMPRESSION: 1. Resolving acute abdominal pain. 2. Colitis and diverticulitis, resolving. 3. Leukocytosis, resolving. 4. Hypophosphatemia. PLAN: We will replace phosphorus and magnesium today. We will advance to regular diet. Continue to ambulate, but can continue broad-spectrum antibiotics at this time. There is no surgical indication for the patient at this time. The patient was seen and examined by Dr. Lea and myself this morning during rounds. Job ID: [id number]
--- NOTE | 2018-10-15 15:44 | PDOC.PN ---
- Subjective Encounter Start Date: 10/15/18 Encounter Start Time: 15:00 Ms. Lance was seen today in follow-up of rectal volvulous, and tachycardia. She says she feels better today than she has in several days. she has less abdominal pain. She has tolerated a clear liquid diet. - Objective Resuscitation Status - Order Detail: 10/11/18 02:11 Resuscitation Status Routine Resuscitation Status: FULL: Full Resuscitation Discussed with: patient and daughter MAR Reviewed: Yes Vital Signs & Weight: Vital Signs (12 hours) Temp Pulse Resp BP Pulse Ox 10/15/18 11:25 98.4 F 82 15 147/67 H 93 L 10/15/18 07:20 97.8 F 80 16 169/75 H 94 L 10/15/18 04:00 98.4 F 88 19 137/63 97 Weight Weight 180 lb 9 oz I&O: 10/14/18 10/15/18 10/16/18 06:59 06:59 06:59 Intake Total 1240 4987 Balance 1240 4987 Result Diagrams: 10/14/18 05:19 10/15/18 05:26 Phys Exam - Physical Examination HEENT: PERRLA Respiratory: no wheezing, no rales, no rhonchi, clear to auscultation bilateral Cardiovascular: RRR, no significant murmur, no rub Gastrointestinal: soft, non-tender, positive bowel sounds Musculoskeletal: no edema, pulses present Dx/Plan (1) Fecal impaction of colon Code(s): K56.41 - FECAL IMPACTION Status: Acute Comment: Trial Fleets enema , Sennokot-S, consult GI service, Gen Surg consult, conservative mgmt initially , trial Movantik 12.5mg x 1 today, Mag citrate today, likely will need colonoscopy evaluation after resolving acute inflammation (2) Diverticular disease Code(s): K57.90 - DVRTCLOS OF INTEST, PART UNSP, W/O PERF OR ABSCESS W/O BLEED Status: Acute (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
--- NOTE | 2018-10-15 19:33 | PRG ---
DATE OF SERVICE: 10/15/2018 SUBJECTIVE: Ms. Lance has no abdominal pain. She has been taking the GoLYTELY and is now having clear stool without any discomfort. OBJECTIVE: VITAL SIGNS: Temperature 97.7, pulse 80, and blood pressure 149/69. GENERAL: She is in no acute distress. Alert and oriented x3. LUNGS: Clear to auscultation bilaterally. HEART: Regular rate and rhythm. ABDOMEN: Soft, nontender, and nondistended. Bowel sounds are present. EXTREMITIES: No lower extremity edema. IMPRESSION: Impacted stool in constipation proximal to a descending colon stenosis, which is likely secondary to ischemic colitis or diverticulitis. The impaction is clinically resolved now. She is pain free. RECOMMENDATIONS: 1. She should be able to transition to oral antibiotics tomorrow and I would complete a 10-day course total of antibiotics including which she has had already. She could either be switched over to ciprofloxacin and metronidazole versus Augmentin. 2. Follow up in GI clinic in 4 weeks. 3. We will plan for colonoscopy in 6 weeks now. 4. She is tolerating a solid diet now. 5. I will sign off. Please call if GI can be of assistance. Dr. Marr is covering the weekend. Job ID: [id number]
[2018-10-15] MEDS: carBAMazepine 200 MG TAB PO SCH (20:58)
[2018-10-15] MEDS: Enoxaparin Sodium 40 MG/0.4 ML SYRINGE SC SCH (20:58)
[2018-10-15] MEDS: Amlodipine 5 MG TAB PO SCH (20:58)
[2018-10-16] MEDS: Acetaminophen 650 MG/20.3 ML UDCUP PO SCH ×3 (00:06→12:06)
[2018-10-16] MEDS: MEROPENEM 1 GM/50 ML 1 GM in Premix Bag 1 BAG IVPB SCH ×2 (02:24→09:08)
[2018-10-16] MEDS: D5 NS w/ 40 mEq KCl 1,000 ML IV SCH (07:00)
[2018-10-16] MEDS: Digoxin 0.125 MG TAB PO SCH (09:05)
[2018-10-16] MEDS: Loratadine 10 MG TAB PO SCH (09:06)
[2018-10-16] MEDS: Pantoprazole 40 MG VIAL IVP SCH (09:06)
[2018-10-16] MEDS: Lisinopril 5 MG TAB PO SCH (09:06)
[2018-10-16 09:27] LABS: Anion Gap 12 mmol/L (10-20); BUN (Urea Nitrogen) Less than 4 mg/dL (9.8-20.1); Calc. Creatinine Clearance 123 mL/min (70-130); Calcium 8.2 mg/dL (7.8-10.44); Carbon Dioxide 29 mmol/L (23-31); Chloride 104 mmol/L (98-107); Estimated GFR-MDRD Greater than 90; Glucose 110 mg/dL (83-110); Potassium 3.5 mmol/L (3.5-5.1); Sodium 141 mmol/L (136-145)
[2018-10-16 11:49] VITALS: BP 156/70; TEMP 98
--- NOTE | 2018-10-16 12:22 | PDOC.PN ---
- Subjective Encounter Start Date: 10/16/18 Encounter Start Time: 12:21 Ms. Lance was seen today in follow-up of fecal impaction. She is feeling much better. She has tolerated a solid diet. - Objective Resuscitation Status - Order Detail: 10/11/18 02:11 Resuscitation Status Routine Resuscitation Status: FULL: Full Resuscitation Discussed with: patient and daughter JCARLOS Reviewed: Yes Vital Signs & Weight: Vital Signs (12 hours) Temp Pulse Resp BP Pulse Ox 10/16/18 11:30 98.0 F 71 15 156/70 H 97 10/16/18 07:00 97.7 F 72 16 171/75 H 95 10/16/18 04:00 98.6 F 74 16 170/77 H 97 Weight Weight 179 lb 6 oz I&O: 10/15/18 10/16/18 10/17/18 06:59 06:59 06:59 Intake Total 4987 1665 Output Total 1400 Balance 4987 265 Result Diagrams: 10/14/18 05:19 10/16/18 08:36 Phys Exam - Physical Examination HEENT: PERRLA Respiratory: no wheezing, no rales, no rhonchi, clear to auscultation bilateral Cardiovascular: RRR, no significant murmur, no rub Gastrointestinal: soft, non-tender, no distention, positive bowel sounds Musculoskeletal: no edema Dx/Plan (1) Fecal impaction of colon Code(s): K56.41 - FECAL IMPACTION Status: Acute Comment: Trial Fleets enema , Sennokot-S, consult GI service, Gen Surg consult, conservative mgmt initially , trial Movantik 12.5mg x 1 today, Mag citrate today, likely will need colonoscopy evaluation after resolving acute inflammation (2) Diverticular disease Code(s): K57.90 - DVRTCLOS OF INTEST, PART UNSP, W/O PERF OR ABSCESS W/O BLEED Status: Acute (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 She is tolerating a solid diet * HTN- blood pressure is a bit elevated- will await Cardiology opinion regarding this. She had a bad cough with Lisinopril. She had been on Losartan, but this was recalled. * Anticipate discharge home today.
--- NOTE | 2018-10-16 12:39 | PRG ---
DATE OF SERVICE: 10/16/2018 This is Coleen Monroe NP dictating a report for Prem Lea DO. SUBJECTIVE: The patient was seen this morning, sitting up on the side of the bed. The patient continues to have loose bowel movements this morning. The patient states that she did have 3 loose stools today. The patient continues to tolerate regular diet. The patient reports feeling much better. Denies any abdominal pain, nausea, or vomiting. OBJECTIVE: VITAL SIGNS: Temperature 97.7, pulse 72, respirations 16, SpO2 of 95% on room air, and blood pressure 171/75. GENERAL: The patient is awake, alert, sitting up on the side of the bed. No signs of distress. Well-appearing elderly female. PULMONARY: Equal chest rise and fall. Clear breath sounds bilateral. No acute respiratory distress. CARDIAC: Regular rate and rhythm. No pedal edema. GASTROINTESTINAL: Abdomen is soft, nontender, and nondistended. EXTREMITIES: Moves all extremities. Gross motor and sensation intact in all extremities. LABORATORY DATA: Sodium 141, potassium 3.5, chloride 104, BUN less than 4, creatinine 0.53, estimated GFR 90, glucose 110, calcium 8.2, and phosphorus 2.0. DIAGNOSTICS: None to review today. IMPRESSION: 1. Resolving acute abdominal pain. 2. Colitis and diverticulitis, resolving. 3. Leukocytosis, resolving. PLAN: No surgical indication for the patient at this time. I agree with Dr. Correia that the patient will be started on oral antibiotics, Cipro, Floxin, and metronidazole. The patient is to follow up with GI Clinic in 4 weeks. The plan is for a colonoscopy in 6 weeks from now. Continue regular diet as tolerated. Surgery will sign off on the patient. There is no need for the patient to follow up in the Surgery Clinic if the patient will be following up with GI. The plan has been discussed with Dr. Lea, who agrees. Please let us know if we can be of further assistance. Job ID: [id number]
--- NOTE | 2018-10-16 18:06 | PDOC.CTH ---
Cardiology Progress Note - Subjective She is doing well. She has not had anymore episodes of SVT/Atrial tach since potassium replaced. - Objective Vital Signs Temp Pulse Resp BP Pulse Ox 10/16/18 11:30 98.0 F 71 15 156/70 H 97 10/16/18 07:00 97.7 F 72 16 171/75 H 95 Weight 179 lb 6 oz 10/15/18 10/16/18 10/17/18 06:59 06:59 06:59 Intake Total 4987 1665 Output Total 1400 Balance 4987 265 - Physical Examination General/Neuro: alert & oriented x3, NAD Neck: no JVD present Lungs: unlabored respirations Heart: RRR Abdomen: NT/ND Extremities: other: (No edema) - Telemetry Telemetry Rhythm: NSR - Labs Result Diagrams: 10/14/18 05:19 10/16/18 08:36 - Assessment/Plan 1. Atrial tachycardia 2. Hypokalemia, resolved. 3. Constipation 4. Diverticulosis PLAN: - Will stop digoxin. - Continue current BB dose. - Follow up as previously scheduled in the office.
--- NOTE | 2018-10-17 05:26 | DIS ---
DATE OF ADMISSION: 10/11/2018 DATE OF DISCHARGE: 10/16/2018 PRIMARY CARE PHYSICIAN: Georgiana Mcnulty MD. DISCHARGE DIAGNOSES: 1. Fecal impaction. 2. Diverticular disease. 3. Hypertension. 4. Hyperlipidemia. DISCHARGE MEDICATIONS: Include: 1. Augmentin 875 mg twice daily for 10 days. 2. Vitamin E 400 units daily. 3. Zocor 40 mg at bedtime. 4. Selenium 100 mcg daily. 5. Protonix 40 mg daily. 6. Ditropan XL 10 mg extended release daily. 7. Metoprolol succinate 100 mg at bedtime. 8. Loratadine 10 mg daily. 9. Tegretol 200 mg daily. 10. Vitamin A 72685 units as directed. 11. Aspirin 81 mg daily. 12. Amlodipine 10 mg at bedtime. PROCEDURES DURING THE ADMISSION: The patient had a CT scan of the abdomen and pelvis. The main findings were copious amount of fecal material with abrupt caliber change involving the proximal descending colon. There was some associated bowel wall thickening and a mucosal enhancement without evidence of active inflammation. There was some diverticulosis in the left hemicolon. The patient also had an echocardiogram showing ejection fraction estimated at 60% to 65%. There was grade 1/3 diastolic dysfunction. Aortic valve sclerosis. Elevated right ventricular systolic pressure at 55 mmHg. CODE STATUS: Full code. ALLERGIES: NO KNOWN DRUG ALLERGIES. HOSPITAL COURSE: Ms. Lance is a pleasant 73-year-old female, who presented to the emergency room with complaints of severe abdominal pain and constipation. When she was evaluated in the ER, CT scan had demonstrated a large amount of fecal material in the colon as well as evidence of a possible volvulus versus rectosigmoid obstruction. Gastroenterology was consulted as well as General Surgery and the decision was made to treat her conservatively. Over the course of the next few days, the obstructive picture improved. She was given GoLYTELY to further clear out the colon and it was felt that it was best to postpone performing a colonoscopy to a later date as she could have some active diverticulitis in the area and this may put her at risk for a perforation. During this time, she was treated with IV antibiotics as well as IV fluids. She had 1 episode of supraventricular tachycardia in which cardiology was consulted and she was briefly placed on digoxin. However, this was attributed to a low potassium and once this was corrected, she had no further recurrence. After being stabilized and able to tolerate a solid diet, she was able to be discharged home on 10/16/2018. Job ID: [id number]
== END 2018-10-16 14:30 | disposition home or self-care (01) | DRG 394 ==
LOC: ERS 22:47 → 2SE 10-11 01:11 → 2NO 10-13 00:50
PROVIDERS: ADMIT Internal Medicine; ATTEND Internal Medicine
DX: K55.9 Vascular disorder of intestine, unspecified (principal); K57.32 Diverticulitis of large intestine without perforation or abscess without bleeding; E87.2 Acidosis; I47.1 Supraventricular tachycardia; K57.30 Diverticulosis of large intestine without perforation or abscess without bleeding; K56.41 Fecal impaction; I10 Essential (primary) hypertension; E78.5 Hyperlipidemia, unspecified; K21.9 Gastro-esophageal reflux disease without esophagitis; D72.829 Elevated white blood cell count, unspecified; D72.825 Bandemia; I49.8 Other specified cardiac arrhythmias; E83.39 Other disorders of phosphorus metabolism; E87.6 Hypokalemia; Z90.710 Acquired absence of both cervix and uterus; Z79.82 Long term (current) use of aspirin; Z90.49 Acquired absence of other specified parts of digestive tract; Z79.899 Other long term (current) drug therapy
CPT/HCPCS: 36415; 74022; 74177; 80048; 80053; 81003; 81015; 83605; 83690; 83735; 83880; 84100; 85007; 85025; 85027; 87040; 87086; 93005; 93306; 96361; 96365; 96366; 96374; 96375; A4353; C9113; J0131; J1160; J1650; J1885; J2185; J2270; J2405; J2543; J3370; J3475; J7050; Q0162; Q9966; S0028

== ENCOUNTER 2019-01-04 08:16 | Outpatient (CLI) | payer MEDICARE, OTHER ==
--- NOTE | 2019-01-04 11:16 | CT ---
CT ANGIOGRAM OF THE ABDOMEN: HISTORY: Diverticulitis. Colonoscopy on found ischemic colitis. COMPARISON: 10/10/2018 TECHNIQUE: CT angiogram of the abdominal aorta is performed in the axial plane. Three-dimensional reformatted i mages are submitted for interpretation. FINDINGS: CT ABDOMEN: Chronic changes in the lung bases. The heart is enlarged. No significant pericardial f luid. There is appropriate arterial phase enhancement of the liver, spleen, pancreas, and adrenal glands. Stable atrophy of the pancreas. No gastrohepatic, retrocrural, or periportal lymphadenopath y. No mesenteric mass, lymphadenopathy, free air, or free fluid. Symmetric enhancement of the kidneys. No obstructive uropathy. Limited evaluation of the alimentary canal by the lack of contras t. No evidence of bowel obstruction. The ileocecal junction is normal. Scattered fecal material in a nondistended, nondilated colon. Diverticulosis, without evidence of diverticulitis. Of note, t he entire colon is not visualized. There are no lytic or blastic lesions in the osseous structures. CT ANGIOGRAM: There is appropriate enhancement and luminal diameter of the descending thoracic aorta , abdominal aorta, and aortic bifurcation. Scattered atherosclerotic plaques in the infrarenal abdominal aorta without significant stenosis. The visualized iliac arteries are patent. The celiac artery origin, superior mesenteric artery origin, inferior mesenteric artery origin, and bilateral renal artery ostia have appropriate enhancement and luminal diameter. IMPRESSION: 1. No significant stenosis with regards to the visualized vascular system. 2. Diverticulosis, without evidence of diverticulitis. Transcribed Date/Time: 01/04/2019 11:35 AM
== END 2019-01-04 08:17 | disposition home or self-care (01) ==
LOC: CT 08:16
PROVIDERS: ATTEND Internal Medicine Gastroenterology
DX: K55.9 Vascular disorder of intestine, unspecified (principal); K57.30 Diverticulosis of large intestine without perforation or abscess without bleeding
CPT/HCPCS: 74175

== ENCOUNTER 2019-08-25 12:49 | Outpatient (CLI) | payer MEDICARE, OTHER ==
--- NOTE | 2019-09-01 13:25 | MMO ---
Bilateral MAMMO Bilat Screen [facility]. CLINICAL HISTORY: Patient is 74 years old and is seen for screening. The patient has the following family history of breast cancer: maternal aunt, malignant (generic) and cousin female, malignant (generic). The patient has no personal history of cancer. VIEWS: The views performed were: bilateral craniocaudal with tomosynthesis and bilateral mediolateral oblique with tomosynthesis. FILMS COMPARED: The present examination has been compared to prior imaging studies performed at [facility] on 07/16/2015, 07/29/2016, 08/18/2017 and 08/24/2018. This study has been interpreted with the assistance of computer-aided detection. MAMMOGRAM FINDINGS: The breasts are heterogeneously dense, which could obscure a lesion on mammography. There are stable benign appearing calcifications seen in both breasts. There are no suspicious masses, suspicious calcifications, or new areas of architectural distortion. IMPRESSION: THERE IS NO MAMMOGRAPHIC EVIDENCE OF MALIGNANCY. A ROUTINE FOLLOW-UP MAMMOGRAM IN 1 YEAR IS RECOMMENDED. THE RESULTS OF THIS EXAM WERE SENT TO THE PATIENT. ACR BI-RADS Category 2 - Benign finding MAMMOGRAPHY NOTE: 1. A negative mammogram report should not delay a biopsy if a dominant of clinically suspicious mass is present. 2. Approximately 10% to 15% of breast cancers are not detected by mammography. 3. Adenosis and dense breasts may obscure an underlying neoplasm. Reported by: AKOSUA JEAN MD Electonically Signed: [id number]
== END 2019-08-25 12:50 | disposition home or self-care (01) ==
LOC: BICMAMMO 12:49
PROVIDERS: ATTEND Physician Assistant
DX: Z12.31 Encounter for screening mammogram for malignant neoplasm of breast (principal); Z80.3 Family history of malignant neoplasm of breast
CPT/HCPCS: 77063; 77067

== ENCOUNTER 2020-09-14 12:24 | Outpatient (CLI) | payer MEDICARE, OTHER ==
--- NOTE | 2020-09-14 14:08 | MMO ---
Bilateral MAMMO Bilat Screen [facility]. CLINICAL HISTORY: Patient is 75 years old and is seen for screening. The patient has the following family history of breast cancer: female cousin, malignant (generic) and maternal aunt, malignant (generic). The patient has no personal history of cancer. VIEWS: The views performed were: bilateral craniocaudal with tomosynthesis and bilateral mediolateral oblique with tomosynthesis. FILMS COMPARED: The present examination has been compared to prior imaging studies performed at [facility] on 07/29/2016, 08/18/2017, 08/24/2018 and 08/25/2019. This study has been interpreted with the assistance of computer-aided detection. MAMMOGRAM FINDINGS: The breasts are heterogeneously dense, which could obscure a lesion on mammography. There are stable benign appearing calcifications seen in both breasts. There are no suspicious masses, suspicious calcifications, or new areas of architectural distortion. IMPRESSION: THERE IS NO MAMMOGRAPHIC EVIDENCE OF MALIGNANCY. A ROUTINE FOLLOW-UP MAMMOGRAM IN 1 YEAR IS RECOMMENDED. THE RESULTS OF THIS EXAM WERE SENT TO THE PATIENT. ACR BI-RADS Category 2 - Benign finding MAMMOGRAPHY NOTE: 1. A negative mammogram report should not delay a biopsy if a dominant of clinically suspicious mass is present. 2. Approximately 10% to 15% of breast cancers are not detected by mammography. 3. Adenosis and dense breasts may obscure an underlying neoplasm. Reported by: WHITLEY GOMEZ MD Electonically Signed: [id number]
== END 2020-09-14 12:25 | disposition home or self-care (01) ==
LOC: BICMAMMO 12:24
PROVIDERS: ATTEND Physician Assistant
DX: Z12.31 Encounter for screening mammogram for malignant neoplasm of breast (principal); Z80.3 Family history of malignant neoplasm of breast
CPT/HCPCS: 77063; 77067

== ENCOUNTER 2022-07-04 11:31 | Outpatient (CLI) | payer MEDICARE, OTHER | END 2022-07-04 11:32 | disposition home or self-care (01) | LOC: BICMAMMO 11:31 | PROVIDERS: ATTEND Physician Assistant | DX: Z12.31 Encounter for screening mammogram for malignant neoplasm of breast (principal); Z80.3 Family history of malignant neoplasm of breast | CPT/HCPCS: 77063; 77067 ==

== ENCOUNTER 2023-01-15 08:29 | Day surgery (SDC) | payer MEDICARE, OTHER ==
[2023-01-15 08:45] LABS: #Basophils 0.1 thou/uL (0.0-0.2); #Eosinphils 0.2 thou/uL (0.0-0.7); #Monocytes 0.7 thou/uL (0.11-0.59); %Basophils 0.9 % (0.0-1.0); %Eosinophils 3.5 % (0.0-10.0); %Lymphocytes 21.6 % (21.0-51.0); %Monocytes 10.7 % (0.0-10.0); %Neutrophils 63.1 % (42.0-75.0); Hemoglobin 8.9 g/dL (12.0-16.0); Mean Corpuscular HGB CONC 32.6 g/dL (32.0-36.0); Mean Corpuscular Hemoglobin 31.3 pg (27.0-31.0); Mean Corpuscular Volume 96.1 fl (78.0-98.0); Mean Platelet Volume 10.5 fL (7.4-10.4); Platelet Count 261 10x3/uL (130-400); RBC Distribution Width 12.1 % (11.5-14.5); Red Blood Cell (RBC) Count 2.84 mill/uL (4.20-5.40); White Blood Cell (WBC) Count 6.3 10x3/uL (4.8-10.8)
[2023-01-15 08:58] LABS: Prothrombin Time 13.2 sec (12.0-14.7)
[2023-01-15 08:59] LABS: PTT 31.1 sec (22.9-36.1)
[2023-01-15 13:10] LABS: ALT (SGPT) 8 U/L (8-55); AST (SGOT) 9 U/L (5-34); Albumin 4.1 g/dL (3.4-4.8); Alkaline Phosphatase 82 U/L (40-110); Anion Gap 15 mmol/L (10-20); BUN (Urea Nitrogen) 35 mg/dL (9.8-20.1); Bilirubin, Total 0.2 mg/dL (0.2-1.2); Calc. Creatinine Clearance 0 mL/min (70-130); Calcium 9.6 mg/dL (7.8-10.44); Carbon Dioxide 23 mmol/L (23-31); Chloride 110 mmol/L (98-107); Estimated GFR 14; Globulin 2.9 g/dL (2.4-3.5); Glucose 119 mg/dL (83-110); Potassium 4.2 mmol/L (3.5-5.1); Sodium 144 mmol/L (136-145)
== END 2023-01-15 13:30 | disposition home or self-care (01) ==
LOC: CT 08:29
PROVIDERS: ATTEND Internal Medicine Nephrology
DX: N17.9 Acute kidney failure, unspecified (principal); I12.9 Hypertensive chronic kidney disease with stage 1 through stage 4 chronic kidney disease, or unspecified chronic kidney disease; N18.9 Chronic kidney disease, unspecified; E86.9 Volume depletion, unspecified
CPT/HCPCS: 50200; 77012; 80053; 85025; 85610; 85730; 88305; 88312; 88329; 88346; 88348; 88350

== ENCOUNTER 2023-06-08 12:44 | Outpatient (CLI) | payer MEDICARE, OTHER | END 2023-06-08 12:45 | disposition home or self-care (01) | LOC: CT 12:44 | PROVIDERS: ATTEND Internal Medicine | DX: N18.9 Chronic kidney disease, unspecified (principal); D63.1 Anemia in chronic kidney disease; R29.898 Other symptoms and signs involving the musculoskeletal system; M47.816 Spondylosis without myelopathy or radiculopathy, lumbar region | CPT/HCPCS: 72131 ==

== ENCOUNTER 2024-06-02 06:14 | Day surgery (SDC) | payer MEDICARE, OTHER ==
[2024-06-01 12:17] VITALS: BMI 25.9
[~2024-06-02 06:14] MED LIST: EPINEPHrine 0.3 MG in Ophthalmic Irrigation Solution 500 ML IRR SCH
[2024-06-02] MEDS ORDERED: Cyclopentolate 1% Opth Drop 2 ML BOT ONE (06:21)
[2024-06-02] MEDS ORDERED: Lidocaine 1% MPF 2 ML VIAL ONE (06:21)
[2024-06-02] MEDS ORDERED: PHENYLephrine 2.5% Ophth Soln 15 ml Bottle ONE (06:21)
[2024-06-02] MEDS ORDERED: Midazolam HCl 2 mg/2 ml Vial ONE (06:44)
[2024-06-02] MEDS ORDERED: fentaNYL 50 mcg/mL 1 mL Vial ONE (06:44)
[2024-06-02] MEDS ORDERED: PROPOFOL 20 ML ONE (06:44)
[2024-06-02] MEDS ORDERED: Ondansetron PF 4 MG/2 ML Vial ONE (07:03)
[2024-06-02] MEDS ORDERED: Dexamethasone 4 mg/ml Vial ONE (07:07)
== END 2024-06-02 08:05 | disposition home or self-care (01) ==
LOC: SDC 06:14
PROVIDERS: ATTEND Ophthalmology Retina Specialist
PROC: 08T43ZZ Resection of Right Vitreous, Percutaneous Approach (ICD-10-PCS; principal; 2024-06-02)
DX: H43.311 Vitreous membranes and strands, right eye (principal); I12.9 Hypertensive chronic kidney disease with stage 1 through stage 4 chronic kidney disease, or unspecified chronic kidney disease; N18.9 Chronic kidney disease, unspecified; E78.5 Hyperlipidemia, unspecified; G50.0 Trigeminal neuralgia; Z90.710 Acquired absence of both cervix and uterus; Z90.49 Acquired absence of other specified parts of digestive tract; Z98.890 Other specified postprocedural states; Z91.048 Other nonmedicinal substance allergy status; Z79.899 Other long term (current) drug therapy
CPT/HCPCS: 67041; J0171

== ENCOUNTER 2024-06-27 18:53 | Inpatient (IN) | payer MEDICARE, OTHER ==
[2024-06-27 20:08] LABS: #Basophils 0.06 10x3/uL (0.0-0.2); %Basophils 1.1 % (0.0-1.0); %Eosinophils 2.3 % (0.0-10.0); %Monocytes 8.2 % (0.0-10.0); Hematocrit 35.4 % (36.0-47.0); Hemoglobin 11.6 g/dL (12.0-16.0); Mean Corpuscular HGB CONC 32.8 g/dL (32.0-36.0); Mean Corpuscular Hemoglobin 31.2 pg (27.0-31.0); Mean Corpuscular Volume 95.2 fL (78.0-98.0); Mean Platelet Volume 10.7 fL (7.4-10.4); Platelet Count 243 10x3/uL (130-400); RBC Distribution Width 13.4 % (11.5-14.5); Red Blood Cell (RBC) Count 3.72 mill/uL (4.20-5.40)
[2024-06-27] MEDS ORDERED: Aspirin Chewable 81 MG TAB ONE (20:14)
[2024-06-27] MEDS ORDERED: Enoxaparin 30 MG (0.3 mL) SYRINGE ONE (20:14)
[2024-06-27] MEDS ORDERED: dilTIAZem 25 MG/5 ML VIAL ONE (20:15)
[2024-06-27 20:27] LABS: INR-International Normal Ratio 0.9; Prothrombin Time 12.2 sec (12.0-14.7)
[2024-06-27 20:35] LABS: ALT (SGPT) 10 U/L (8-55); AST (SGOT) 15 U/L (5-34); Albumin 3.6 g/dL (3.4-4.8); Alkaline Phosphatase 110 U/L (40-110); Anion Gap 14 mmol/L (10-20); BUN (Urea Nitrogen) 37 mg/dL (9.8-20.1); Bilirubin, Total 0.3 mg/dL (0.2-1.2); Calc. Creatinine Clearance 0 mL/min (70-130); Calcium 8.8 mg/dL (7.8-10.44); Carbon Dioxide 21 mmol/L (23-31); Chloride 111 mmol/L (98-107); Estimated GFR 23; Globulin 3.4 g/dL (2.4-3.5); Glucose 92 mg/dL (83-110); Magnesium 2.3 mg/dL (1.6-2.6); Potassium 4.4 mmol/L (3.5-5.1); Sodium 142 mmol/L (136-145)
[2024-06-27 21:20] LABS: Troponin I Less than 0.010 ng/mL (< 0.028)
[2024-06-27] MEDS ORDERED: Ondansetron ODT 4 MG TAB SL PRN (21:30)
[2024-06-27] MEDS ORDERED: Ondansetron PF 4 MG/2 ML Vial IVP PRN ×2 (21:30→23:14)
[2024-06-27] MEDS ORDERED: Acetaminophen 325 MG TAB PO PRN ×2 (21:30→23:14)
[2024-06-27] MEDS ORDERED: Ondansetron ODT 4 MG TAB PO PRN (23:14)
[2024-06-27 23:30] LABS: Troponin I Less than 0.010 ng/mL (< 0.028)
[2024-06-27] MEDS ORDERED: dilTIAZem 30 MG TAB PO SCH (23:59)
[2024-06-28] MEDS ORDERED: Sodium Bicarbonate Tab 325 MG TAB ONE
[2024-06-28] MEDS ORDERED: Atorvastatin Calcium 40 MG TAB ONE
[2024-06-28 02:22] LABS: #Basophils 0.05 10x3/uL (0.0-0.2); %Basophils 0.9 % (0.0-1.0); %Eosinophils 2.2 % (0.0-10.0); %Lymphocytes 28.7 % (21.0-51.0); %Monocytes 8.6 % (0.0-10.0); %Neutrophils 59.4 % (42.0-75.0); Hematocrit 33.1 % (36.0-47.0); Hemoglobin 10.7 g/dL (12.0-16.0); Mean Corpuscular HGB CONC 32.3 g/dL (32.0-36.0); Mean Corpuscular Hemoglobin 31.2 pg (27.0-31.0); Mean Corpuscular Volume 96.5 fL (78.0-98.0); Mean Platelet Volume 10.3 fL (7.4-10.4); Platelet Count 218 10x3/uL (130-400); RBC Distribution Width 13.4 % (11.5-14.5); Red Blood Cell (RBC) Count 3.43 mill/uL (4.20-5.40)
[2024-06-28 02:44] LABS: Troponin I Less than 0.010 ng/mL (< 0.028)
[2024-06-28] MEDS: Atorvastatin Calcium 20 MG TAB PO SCH ×2 (03:13→20:04)
[2024-06-28] MEDS: Sodium Bicarbonate Tab 325 MG TAB PO SCH ×2 (03:14→20:06)
[2024-06-28] MEDS: carBAMazepine 100 mg Chewable Tablet PO SCH (03:18)
[2024-06-28] MEDS: Labetalol HCl 100 MG TAB PO SCH ×2 (03:19→09:36)
[2024-06-28 03:25] LABS: Anion Gap 15 mmol/L (10-20); BUN (Urea Nitrogen) 37 mg/dL (9.8-20.1); Calc. Creatinine Clearance 0 mL/min (70-130); Calcium 8.6 mg/dL (7.8-10.44); Carbon Dioxide 19 mmol/L (23-31); Chloride 112 mmol/L (98-107); Estimated GFR 24; Glucose 100 mg/dL (83-110); Potassium 4.1 mmol/L (3.5-5.1); Sodium 142 mmol/L (136-145)
[2024-06-28] MEDS: NIFEdipine XL 60 MG ER.TAB PO SCH (09:35)
[2024-06-28] MEDS: Aspirin 81 mg Enteric Coated Tablet PO SCH (09:35)
[2024-06-28] MEDS: Oxybutynin ER 5 MG TAB PO SCH (09:36)
[2024-06-28 09:51] VITALS: BMI 26.0
[2024-06-28] MEDS ORDERED: Apixaban 5 MG TAB PO SCH (10:37)
[2024-06-28] MEDS: Apixaban 5 MG TAB PO SCH ×2 (10:56→23:47)
[2024-06-28] MEDS: Dapagliflozin Propanediol 10 MG TAB PO SCH (13:20)
[2024-06-28] MEDS ORDERED: carBAMazepine 200 MG TAB PO SCH (21:00)
[2024-06-29 04:30] LABS: #Basophils 0.05 10x3/uL (0.0-0.2); %Basophils 0.6 % (0.0-1.0); %Eosinophils 2.1 % (0.0-10.0); %Lymphocytes 24.8 % (21.0-51.0); %Monocytes 9.2 % (0.0-10.0); %Neutrophils 63.2 % (42.0-75.0); Hematocrit 32.8 % (36.0-47.0); Hemoglobin 10.8 g/dL (12.0-16.0); Mean Corpuscular HGB CONC 32.9 g/dL (32.0-36.0); Mean Corpuscular Hemoglobin 31.7 pg (27.0-31.0); Mean Corpuscular Volume 96.2 fL (78.0-98.0); Mean Platelet Volume 10.9 fL (7.4-10.4); Platelet Count 229 10x3/uL (130-400); RBC Distribution Width 13.2 % (11.5-14.5); Red Blood Cell (RBC) Count 3.41 mill/uL (4.20-5.40)
[2024-06-29 04:40] LABS: ALT (SGPT) 7 U/L (8-55); AST (SGOT) 12 U/L (5-34); Albumin 3.4 g/dL (3.4-4.8); Alkaline Phosphatase 92 U/L (40-110); Anion Gap 15 mmol/L (10-20); BUN (Urea Nitrogen) 41 mg/dL (9.8-20.1); Bilirubin, Total 0.4 mg/dL (0.2-1.2); Calc. Creatinine Clearance 20 mL/min (70-130); Calcium 8.6 mg/dL (7.8-10.44); Carbon Dioxide 21 mmol/L (23-31); Chloride 109 mmol/L (98-107); Estimated GFR 21; Globulin 2.8 g/dL (2.4-3.5); Glucose 90 mg/dL (83-110); Potassium 4.1 mmol/L (3.5-5.1); Protein, Total 6.2 g/dL (5.8-8.1); Sodium 141 mmol/L (136-145)
[2024-06-29] MEDS: Apixaban 5 MG TAB PO SCH (08:02)
[2024-06-29] MEDS: Dapagliflozin Propanediol 10 MG TAB PO SCH (08:02)
[2024-06-29 15:38] VITALS: BP 136/62; TEMP 98
== END 2024-06-29 17:22 | disposition home or self-care (01) | DRG 309 ==
LOC: ERS 18:53 → ERHOLD 21:22 → PCU 06-28 07:56 → OBSVTOIN 06-29 13:44
PROVIDERS: ADMIT Student in an Organized Health Care Education/Training Program; ATTEND Internal Medicine
DX: I48.91 Unspecified atrial fibrillation (principal); N18.4 Chronic kidney disease, stage 4 (severe); I12.9 Hypertensive chronic kidney disease with stage 1 through stage 4 chronic kidney disease, or unspecified chronic kidney disease; E78.5 Hyperlipidemia, unspecified; G50.0 Trigeminal neuralgia; Z90.710 Acquired absence of both cervix and uterus; Z79.899 Other long term (current) drug therapy
CPT/HCPCS: 36415; 71045; 80048; 80053; 83735; 83880; 84443; 84484; 85025; 85610; 85730; 93005; 94760; 96372; 96374; G0378; J1650

== ENCOUNTER 2024-07-07 05:59 | Day surgery (SDC) | payer MEDICARE, OTHER ==
[2024-07-06 10:54] VITALS: BMI 25.9
[2024-07-07] MEDS ORDERED: Cyclopentolate 1% Opth Drop 2 ML BOT ONE (06:01)
[2024-07-07] MEDS ORDERED: PHENYLephrine 2.5% Ophth Soln 15 ml Bottle ONE (06:01)
[2024-07-07] MEDS ORDERED: Lidocaine 1% PF 5 ML VIAL ONE ×2 (06:41→07:09)
[2024-07-07] MEDS ORDERED: fentaNYL 50 mcg/mL 1 mL Vial ONE (06:41)
[2024-07-07] MEDS ORDERED: PROPOFOL 20 ML ONE (06:41)
[2024-07-07] MEDS ORDERED: Midazolam HCl 2 mg/2 ml Vial ONE (06:41)
[2024-07-07] MEDS ORDERED: Bupivacaine 0.75% 10 ML VIAL ONE (07:09)
[2024-07-07] MEDS ORDERED: Dexamethasone 4 mg/ml Vial ONE ×2 (07:09→07:23)
[2024-07-07] MEDS ORDERED: CEFAZOLIN 1 GM VIAL ONE (07:09)
[2024-07-07] MEDS ORDERED: Maxitrol 0.1% Opth Oint 3.5 GM TUBE ONE (07:09)
[2024-07-07] MEDS ORDERED: Lidocaine 4% PF 5 ML AMP ONE (07:09)
[2024-07-07] MEDS ORDERED: Ondansetron PF 4 MG/2 ML Vial ONE (07:13)
== END 2024-07-07 08:09 | disposition home or self-care (01) ==
LOC: SDC 05:59
PROVIDERS: ATTEND Ophthalmology Retina Specialist
PROC: 08T53ZZ Resection of Left Vitreous, Percutaneous Approach (ICD-10-PCS; principal; 2024-07-07)
PROC: 08NF3ZZ Release Left Retina, Percutaneous Approach (ICD-10-PCS; 2024-07-07)
DX: H43.312 Vitreous membranes and strands, left eye (principal); I10 Essential (primary) hypertension; I48.91 Unspecified atrial fibrillation; Z91.048 Other nonmedicinal substance allergy status; Z79.82 Long term (current) use of aspirin; Z79.01 Long term (current) use of anticoagulants; Z79.899 Other long term (current) drug therapy
CPT/HCPCS: 67041; J0171; J0690; J1100; J2250; J2405; J2704; J3010; J3490

== ENCOUNTER 2024-07-18 12:28 | Outpatient (CLI) | payer MEDICARE, OTHER | END 2024-07-18 12:29 | disposition home or self-care (01) | LOC: BICMAMMO 12:28 | PROVIDERS: ATTEND Internal Medicine | DX: Z12.31 Encounter for screening mammogram for malignant neoplasm of breast (principal); Z80.3 Family history of malignant neoplasm of breast | CPT/HCPCS: 77063; 77067 ==

== ENCOUNTER 2025-02-14 05:51 | Day surgery (SDC) | payer MEDICARE, OTHER ==
[2025-02-09 13:39] VITALS: BMI 25.2
[2025-02-14] MEDS ORDERED: PROPOFOL 200 MG/20 ML VIAL ONE (07:47)
[2025-02-14] MEDS ORDERED: Lidocaine 1% PF 5 ML VIAL ONE (07:47)
== END 2025-02-14 08:45 | disposition home or self-care (01) ==
LOC: SDC 05:51
PROVIDERS: ATTEND Internal Medicine Cardiovascular Disease
PROC: B24BZZ4 Ultrasonography of Heart with Aorta, Transesophageal (ICD-10-PCS; principal; 2025-02-14)
DX: I48.0 Paroxysmal atrial fibrillation (principal); Z95.818 Presence of other cardiac implants and grafts; Z90.710 Acquired absence of both cervix and uterus; Z90.49 Acquired absence of other specified parts of digestive tract; Z88.8 Allergy status to other drugs, medicaments and biological substances; Z91.048 Other nonmedicinal substance allergy status; Z79.01 Long term (current) use of anticoagulants
CPT/HCPCS: 93312; J2704

== ENCOUNTER 2025-06-07 07:52 | Inpatient (IN) | payer MEDICARE, OTHER ==
[2025-06-07 08:14] LABS: #Basophils 0.04 10x3/uL (0.0-0.2); #Eosinophils 0.17 10x3/uL (0.0-0.7); #Monocytes 0.63 10x3/uL (0.11-0.59); #Neutrophils 4.55 10x3/uL (1.40-6.50); %Basophils 0.6 % (0.0-1.0); %Eosinophils 2.7 % (0.0-10.0); %Lymphocytes 15.2 % (21.0-51.0); %Monocytes 9.9 % (0.0-10.0); %Neutrophils 71.3 % (42.0-75.0); Hematocrit 32.5 % (36.0-47.0); Hemoglobin 10.4 g/dL (12.0-16.0); Mean Corpuscular Hemoglobin 29.6 pg (27.0-31.0); Mean Corpuscular Volume 92.6 fL (78.0-98.0); Platelet Count 255 10x3/uL (130-400); Red Blood Cell (RBC) Count 3.51 mill/uL (4.20-5.40); White Blood Cell (WBC) Count 6.38 10x3/uL (4.8-10.8)
[2025-06-07 08:28] LABS: ALT (SGPT) 10 U/L (Less than 34); AST (SGOT) 13 U/L (11-34); Albumin 3.6 g/dL (3.1-4.5); Alkaline Phosphatase 80 U/L (40-110); Anion Gap 16 mmol/L (10-20); BUN (Urea Nitrogen) 33 mg/dL (9.8-20.1); Bilirubin, Total 0.4 mg/dL (0.3-1.2); Calc. Creatinine Clearance 0 mL/min (70-130); Calcium 9.3 mg/dL (7.8-10.44); Carbon Dioxide 22 mmol/L (23-31); Chloride 109 mmol/L (98-107); Globulin 3.1 g/dL (2.4-3.5); Glucose 101 mg/dL (83-110); Magnesium 1.9 mg/dL (1.6-2.6); Potassium 3.9 mmol/L (3.5-5.1); Sodium 143 mmol/L (136-145)
[2025-06-07] MEDS ORDERED: dilTIAZem 25 MG/5 ML VIAL ONE (09:39)
[2025-06-07] MEDS ORDERED: Melatonin 3 MG TAB PO PRN (11:26)
[2025-06-07] MEDS ORDERED: Senokot S 8.6-50 MG TAB PO PRN (11:26)
[2025-06-07] MEDS ORDERED: Calcium Carbonate 500 MG ChewTAB PO PRN (11:26)
[2025-06-07] MEDS ORDERED: Guaifenesin DM 100-10/5 ML UDCUP PO PRN (11:26)
[2025-06-07] MEDS ORDERED: Ondansetron PF 4 MG/2 ML Vial IVP PRN (11:26)
[2025-06-07] MEDS ORDERED: Acetaminophen 325 MG TAB PO PRN (11:26)
[2025-06-07] MEDS ORDERED: Electrolyte Replacement Protocol 1 EACH FS SCH (11:30)
[2025-06-07 13:18] VITALS: BMI 26.2
[2025-06-07] MEDS: Sodium Bicarbonate Tab 325 MG TAB PO SCH (20:03)
[2025-06-07] MEDS: Pantoprazole 40 MG DR.TAB PO SCH (20:03)
[2025-06-07 20:50] LABS: CAUTI Indications for Culture Alt mental st,lethar; Glucose, Urine (Dipstick) Normal (Negative); Leukocyte Negative Leu/uL (Negative); Protein, Urine (Dipstick) Negative (Neg-Trace); RBC/HPF None Seen HPF (0-3); Specific Gravity, Urine 1.008 (1.002-1.036); WBC/HPF 0-3 HPF (0-3)
[2025-06-07 20:54] LABS: Bacteria/HPF 1+ HPF (None Seen); Urine Culture Reflex No No
[2025-06-08 04:21] LABS: #Basophils 0.03 10x3/uL (0.0-0.2); #Eosinophils 0.12 10x3/uL (0.0-0.7); #Monocytes 0.59 10x3/uL (0.11-0.59); #Neutrophils 3.82 10x3/uL (1.40-6.50); %Basophils 0.5 % (0.0-1.0); %Eosinophils 2.1 % (0.0-10.0); %Lymphocytes 20.0 % (21.0-51.0); %Monocytes 10.3 % (0.0-10.0); %Neutrophils 66.9 % (42.0-75.0); Hematocrit 27.6 % (36.0-47.0); Hemoglobin 8.6 g/dL (12.0-16.0); Mean Corpuscular Hemoglobin 29.4 pg (27.0-31.0); Mean Corpuscular Volume 94.2 fL (78.0-98.0); Platelet Count 205 10x3/uL (130-400); Red Blood Cell (RBC) Count 2.93 mill/uL (4.20-5.40); White Blood Cell (WBC) Count 5.71 10x3/uL (4.8-10.8)
[2025-06-08 04:46] LABS: Anion Gap 12 mmol/L (10-20); BUN (Urea Nitrogen) 37 mg/dL (9.8-20.1); Calc. Creatinine Clearance 16 mL/min (70-130); Carbon Dioxide 23 mmol/L (23-31); Chloride 110 mmol/L (98-107); Potassium 3.9 mmol/L (3.5-5.1); Sodium 141 mmol/L (136-145)
[2025-06-08 04:47] LABS: ALT (SGPT) 10 U/L (Less than 34); AST (SGOT) 14 U/L (11-34); Albumin 2.9 g/dL (3.1-4.5); Alkaline Phosphatase 65 U/L (40-110); Bilirubin, Total 0.3 mg/dL (0.3-1.2); Calcium 8.4 mg/dL (7.8-10.44); Globulin 2.5 g/dL (2.4-3.5); Glucose 84 mg/dL (83-110)
[2025-06-08] MEDS: Albumin 25% 25 GM (100 mL) BOT IVPB SCH (06:14)
[2025-06-08] MEDS ORDERED: Enoxaparin 30 MG (0.3 mL) SYRINGE SC SCH (09:00)
[2025-06-08] MEDS: EPOETIN ALFA-EPBX (ESRD) 10,000 UNITS/ML VIAL SC SCH ×2 (15:59→17:49)
[2025-06-08] MEDS: Acetaminophen/Codeine 30-300mg Tablet PO PRN (20:55)
[2025-06-09 08:45] LABS: #Basophils 0.03 10x3/uL (0.0-0.2); #Eosinophils 0.04 10x3/uL (0.0-0.7); #Monocytes 0.62 10x3/uL (0.11-0.59); #Neutrophils 5.42 10x3/uL (1.40-6.50); %Basophils 0.4 % (0.0-1.0); %Eosinophils 0.6 % (0.0-10.0); %Lymphocytes 8.7 % (21.0-51.0); %Monocytes 9.3 % (0.0-10.0); %Neutrophils 80.9 % (42.0-75.0); Hematocrit 27.8 % (36.0-47.0); Hemoglobin 8.7 g/dL (12.0-16.0); Mean Corpuscular Hemoglobin 29.4 pg (27.0-31.0); Mean Corpuscular Volume 93.9 fL (78.0-98.0); Platelet Count 212 10x3/uL (130-400); Red Blood Cell (RBC) Count 2.96 mill/uL (4.20-5.40); White Blood Cell (WBC) Count 6.70 10x3/uL (4.8-10.8)
[2025-06-09] MEDS: Albumin 25% 25 GM (100 mL) BOT IVPB SCH (09:01)
[2025-06-09 09:02] LABS: Albumin 4.3 g/dL (3.1-4.5); Anion Gap 20 mmol/L (10-20); BUN (Urea Nitrogen) 39 mg/dL (9.8-20.1); BUN/Creatinine Ratio 12.91; Calc. Creatinine Clearance 15 mL/min (70-130); Calcium 9.3 mg/dL (7.8-10.44); Carbon Dioxide 27 mmol/L (23-31); Chloride 101 mmol/L (98-107); Glucose 99 mg/dL (83-110); Potassium 4.0 mmol/L (3.5-5.1); Sodium 144 mmol/L (136-145)
[2025-06-09 12:03] VITALS: BP 172/77; TEMP 97.6
== END 2025-06-09 12:23 | disposition home or self-care (01) | DRG 309 ==
LOC: SUATTDRO 07:52 → ERS 07:52 → OBS 11:10
PROVIDERS: ADMIT Internal Medicine; ATTEND Family Medicine
PROC: 30233J1 Transfusion of Nonautologous Serum Albumin into Peripheral Vein, Percutaneous Approach (ICD-10-PCS; principal; 2025-06-08)
DX: I48.91 Unspecified atrial fibrillation (principal); E87.20 Acidosis, unspecified; I13.0 Hypertensive heart and chronic kidney disease with heart failure and stage 1 through stage 4 chronic kidney disease, or unspecified chronic kidney disease; N18.4 Chronic kidney disease, stage 4 (severe); I50.32 Chronic diastolic (congestive) heart failure; N17.9 Acute kidney failure, unspecified; N25.81 Secondary hyperparathyroidism of renal origin; E78.5 Hyperlipidemia, unspecified; Z66 Do not resuscitate; E86.9 Volume depletion, unspecified; D63.1 Anemia in chronic kidney disease; R80.9 Proteinuria, unspecified; Z91.040 Latex allergy status; Z91.048 Other nonmedicinal substance allergy status; Z90.49 Acquired absence of other specified parts of digestive tract; Z90.710 Acquired absence of both cervix and uterus; Z95.818 Presence of other cardiac implants and grafts; Z79.82 Long term (current) use of aspirin; Z79.899 Other long term (current) drug therapy; Z79.01 Long term (current) use of anticoagulants
CPT/HCPCS: 36415; 71045; 80053; 80069; 81001; 82728; 83540; 83550; 83735; 84484; 85025; 93005; A4217; J7120; P9047; Q5105